=== PATIENT | male | born 1960 | race African-American/Black ===

== ENCOUNTER 2017-05-28 14:17 | Inpatient (IN) | payer OTHER ==
[~2017-05-28] VITALS: Ht 165.1 cm; Wt 72.5 kg
[~2017-05-28 14:17] MED LIST: AMLO1CAP; ATEN50TA; HYDR25TA6; LISI-525; LISI20TA11; NITR0.4T28; OLAN10TA16; PHEN100C; SERT100T; TAMS-14
--- NOTE | 2017-05-28 14:25 | ERA ---
ER Documentation Chief Complaint Date/Time DATE: 05/28/17 TIME: 14:25 Chief Complaint sob cp HPI The patient is a 57-year-old male, presenting with acute chest pain and shortness of breath began about 11 AM. He went to the clinic and was treated with 2 baby aspirin for chest pain and clonidine 0.2 mg p.o. for acute accelerated hypertension transferred to the ER for further evaluation. The chest pain has subsided but he is still complaining of shortness of breath. Has similar symptoms previously, denies fever, chills, neck pain, chest pain, vomiting, dysuria, diarrhea. There are no aggravating or relieving factor for the shortness of breath. he smokes a pack a day, drinks socially Past medical history: Hypertension, BPH, seizure, bipolar, hepatitis C, history of CVA Past medical history: None ROS All systems reviewed and are negative except as per history of present illness. Medications Home Meds Reported Medications Losartan Potassium* (Losartan Potassium*) 50 Mg Tablet, 50 MG PO DAILY, TAB 05/28/17 Aspirin* (Aspirin* Chew) 81 Mg Tab.chew, 81 MG PO DAILY, TAB.CHEW 05/28/17 Phenytoin* Sodium Extended (Dilantin*) 300 Mg Capsule, 300 MG PO HS, CAP 05/28/17 Atenolol* (Atenolol*) 100 Mg Tablet, 100 MG PO DAILY, #30 TAB 05/28/17 Discontinued Reported Medications Nitroglycerin (Nitroquick) 0.4 Mg Tab.subl 01/30/11 Lisinopril* (Lisinopril*) 20 Mg Tablet 01/30/11 Atenolol* (Atenolol*) 50 Mg Tablet 01/30/11 Olanzapine (Zyprexa) 10 Mg Tablet 01/30/11 Sertraline Hcl* (Zoloft*) 100 Mg Tablet 01/30/11 Phenytoin* Sodium Extended (Dilantin*) 100 Mg Capsule 01/30/11 Lisinopril* (Zestril*) 20 Mg Tablet 01/30/11 Amlodipine Besylate/Benazepril (Lotrel 2.5-10 Mg Capsule) 1 Udcap Capsule 01/30/11 Hydrochlorothiazide (Hydrochlorothiazide) 25 Mg Tablet 01/30/11 Tamsulosin Hcl* (Flomax*) 0.4 Mg Cap.sr.24h 01/30/11 Allergies Allergies: Coded Allergies: No Known Allergy (Verified , 01/25/08) PMhx/Soc History of Surgery: No Anesthesia Reaction: No Hx Neurological Disorder: No Hx Respiratory Disorders: No Hx Cardiac Disorders: Yes (HTN) Hx Psychiatric Problems: Yes (BIPOLAR) Hx Miscellaneous Medical Probl: Yes (HEP C) Hx Alcohol Use: Yes Hx Substance Use: No Hx Tobacco Use: No Physical Exam Vitals Vital Signs Date Time Temp Pulse Resp B/P Pulse Ox O2 Delivery O2 Flow Rate FiO2 05/28/17 18:15 58 18 195/151 98 05/28/17 16:55 67 18 182/122 98 05/28/17 15:48 53 18 164/120 98 05/28/17 14:35 Nasal Cannula 2 05/28/17 14:26 97.6 56 18 174/111 98 Physical Exam Const: No acute distress. Head: Atraumatic. Eyes: Normal Conjunctiva. ENT: Normal External Ears, Nose and Mouth. Neck: Full range of motion. No meningismus. Resp: Basilar crackle Cardio: Regular bradycardic Abd: Soft, non distended, normal bowel sounds, non tender. Skin: No petechiae or rashes. Back: No midline or flank tenderness. Ext: bilateral leg edema, no calf tenderness Neur: Awake and alert. No focal deficit Psych: Normal Mood and Affect. Result Diagram: 05/28/17 1450 05/28/17 1450 Results 24 hrs Laboratory Tests Test 05/28/17 14:50 White Blood Count 5.610^3/ul Red Blood Count 5.1410^6/ul Hemoglobin 14.5g/dl Hematocrit 43.3% Mean Corpuscular Volume 84.2fl Mean Corpuscular Hemoglobin 28.2pg Mean Corpuscular Hemoglobin Concent 33.5g/dl Red Cell Distribution Width 13.3% Platelet Count 09529^3/UL Mean Platelet Volume 10.4fl Neutrophils % 45.9% Lymphocytes % 43.6% Monocytes % 6.4% Eosinophils % 3.4% Basophils % 0.5% Nucleated Red Blood Cells % 0.0/100WBC Neutrophils # 2.610^3/ul Lymphocytes # 2.410^3/ul Monocytes # 0.410^3/ul Eosinophils # 0.210^3/ul Basophils # 0.010^3/ul Nucleated Red Blood Cells # 0.010^3/ul Prothrombin Time 12.5Sec Prothrombin Time Ratio 1.0 INR International Normalized Ratio 0.93 Activated Partial Thromboplast Time 28.1Sec Sodium Level 142mmol/L Potassium Level 4.1mmol/L Chloride Level 109mmol/L Carbon Dioxide Level 23mmol/L Anion Gap 14 Blood Urea Nitrogen 13mg/dl Creatinine 1.15mg/dl Glucose Level 104mg/dl Calcium Level 9.3mg/dl Troponin I 0.056ng/ml B-Type Natriuretic Peptide 3230PG/ML Phenytoin (Dilantin) Level < 3.0ug/ml Current Medications Medications (Trade) Dose Ordered Sig/Charli Route PRN Reason Start Time Stop Time Status Last Admin Dose Admin Furosemide (Lasix) 40 mg ONCE ONCE IV 05/28/17 16:30 05/28/17 16:31 DC 05/28/17 16:36 Aspirin (Aspirin) 81 mg DAILY PO 05/29/17 09:00 Losartan Potassium (Cozaar) 100 mg DAILY PO 05/29/17 09:00 UNV Phenytoin (Dilantin) 300 mg HS PO 05/28/17 21:00 UNV Olanzapine (Zyprexa) 7.5 mg DAILY PO 05/29/17 09:00 UNV Hydralazine HCl (Apresoline) 10 mg Q4 PRN IV ELEVATED BLOOD PRESSURE 05/28/17 17:30 UNV Furosemide (Lasix) 40 mg BID DIURETICS IV 05/28/17 22:00 IV Flush (NS 3 ml) 3 ml PER PROTOCOL IV 05/28/17 17:30 Ondansetron HCl (Zofran Inj) 4 mg Q6H PRN IV NAUSEA AND/OR VOMITING 05/28/17 17:30 Acetaminophen (Tylenol Tab) 650 mg Q6H PRN PO PAIN LEVEL 1-3 OR FEVER 05/28/17 17:30 Docusate Sodium (Colace) 100 mg Q12H PRN PO CONSTIPATION 05/28/17 17:30 Famotidine (Pepcid) 20 mg Q12 PO 05/28/17 21:00 Heparin Sodium (Porcine) (Heparin (5000 Units/0.5 ml)) 5,000 unit Q8 SC 05/28/17 22:00 Thiamine HCl (Vitamin B1) 100 mg DAILY PO 05/29/17 09:00 UNV Folic Acid (Folic Acid) 0.4 mg DAILY PO 05/29/17 09:00 UNV Lorazepam (Ativan) 1 mg Q5M PRN IV CONTROL WITHDRAWAL SYMPTOMS 05/28/17 18:00 Albuterol (Proventil 0.083% (Neb)) 2.5 mg Q4H RESP THERAPY PRN HHN SHORTNESS OF BREATH 05/28/17 18:00 Salmeterol Xinafoate/ Fluticasone (Advair 250/50 Diskus) 1 inh BID INH 05/28/17 21:00 UNV Nicotine (Nicoderm 21 Mg/ 24hr) 1 patch DAILY TRANSDERM 05/28/17 18:00 UNV Procedures/[place] [address] Radiology Main Line: [phone] DIAGNOSTIC IMAGING REPORT Patient: AMPARO GODDARD : 1960 Age: 57 Sex: M MR #: [id number] DOS: 05/28/17 1434 Ordering MD: JHONATHAN ZIMMERMAN MD Location: E/R Room/Bed: PROCEDURE: Chest Radiograph. CLINICAL INDICATION: Shortness of breath TECHNIQUE: Single frontal chest radiograph. COMPARISON: Chest radiograph 01/24/2008. CT chest 01/24/2008 FINDINGS: The patient is rotated. Heart is mildly enlarged. There is mild enlargement of the nav likely related to pulmonary vascular congestion. No infiltrate or effusion is seen. The bones are intact. IMPRESSION: 1. Cardiomegaly and mild central vascular congestion. 2. No evidence of acute cardiopulmonary disease. RPTAT: GG .Den Barton MD, MD Date Time Electronically viewed and signed by .Den Barton MD, on 2016 15:02 .B/ CC: JHONATHAN ZIMMERMAN MD EKG: Read by emergency physician Rate/Rhythm: Sinus Bradycardia 54 beats/min QRS, ST, T-waves: No ST elevation, no T inversion, 1st AVB, LAD, RBBB Impression: Abnormal EKG MEDICAL MAKING DECISION: The patient is a 57-year-old male, presenting with acute chest pain, acute CHF. He was treated with Lasix 40 mg IV acute CHF with good response The differential diagnoses for acute chest pain considered include but are not limited to acute coronary syndrome, acute myocardial infarction, pericarditis, pulmonary embolism, aortic dissection, pneumonia, pleural effusion, pneumothorax , GERD, chest wall pain. The differential diagnoses for acute dyspnea considered include but are not limited to asthma, COPD, pneumonia, pulmonary embolus, pleural effusion, congestive heart failure. Departure Diagnosis: Primary Impression: CHF (congestive heart failure) Additional Impression: Chest pain Condition: Stable Comments I discussed the findings with the patient. I advised the patient to follow-up with the primary physician in about 1-2 days, sooner if needed and return if any concern. JHONATHAN ZIMMERMAN MD May 28, 2017 14:25
[2017-05-28] MEDS ORDERED: ATEN100T PO (14:51)
[2017-05-28] MEDS ORDERED: PHEN300C2 PO (14:51)
[2017-05-28] MEDS ORDERED: ASPI81TA3 PO (14:52)
[2017-05-28] MEDS ORDERED: LOSA50TA6 PO (14:53)
[2017-05-28 14:58] LABS: BASOPHILS % 0.5 % (0.0-2.0); EOSINOPHILS # 0.2 10^3/ul (0.0-0.5); EOSINOPHILS % 3.4 % (0.0-7.0); HEMATOCRIT 43.3 % (42.0-52.0); HEMOGLOBIN 14.5 g/dl (14.0-18.0); LYMPHOCYTES # 2.4 10^3/ul (0.8-2.9); LYMPHOCYTES % 43.6 % (15.0-51.0); MEAN CORPUSCULAR HEMOGLOBIN 28.2 pg (29.0-33.0); MEAN CORPUSCULAR HGB CONC 33.5 g/dl (32.0-37.0); MEAN CORPUSCULAR VOLUME 84.2 fl (82.0-101.0); MEAN PLATELET VOLUME 10.4 fl (7.4-10.4); MONOCYTE # 0.4 10^3/ul (0.3-0.9); MONOCYTES % 6.4 % (0.0-11.0); NEUTROPHIL # 2.6 10^3/ul (1.6-7.5); NEUTROPHILS % 45.9 % (39.0-77.0); PLATELET COUNT 288 10^3/UL (140-415); RED BLOOD COUNT 5.14 10^6/ul (4.70-6.10); RED CELL DISTRIBUTION WIDTH 13.3 % (11.5-14.5); WHITE BLOOD COUNT 5.6 10^3/ul (4.8-10.8)
--- NOTE | 2017-05-28 15:02 | RADRPT ---
PROCEDURE: Chest Radiograph. CLINICAL INDICATION: Shortness of breath TECHNIQUE: Single frontal chest radiograph. COMPARISON: Chest radiograph 01/24/2008. CT chest 01/24/2008 FINDINGS: The patient is rotated. Heart is mildly enlarged. There is mild enlargement of the nav likely relat ed to pulmonary vascular congestion. No infiltrate or effusion is seen. The bones are intact. IMPRESSION: 1. Cardiomegaly and mild central vascular congestion. 2. No evidence of acute cardiopulmonary disease. RPTAT: GG .Den Barton MD, MD Date Time Electronically viewed and signed by .Den Barton MD, MD on 05/28/2017 15:02 .B/
[2017-05-28 15:14] LABS: INR 0.93; PROTIME 12.5 Sec (12.2-14.2)
[2017-05-28 15:15] LABS: PARTIAL THROMBOPLASTIN TIME 28.1 Sec (25.0-35.0)
[2017-05-28 15:18] LABS: CALCIUM 9.3 mg/dl (8.4-10.2); CREATININE 1.15 mg/dl (0.61-1.24); POTASSIUM 4.1 mmol/L (3.5-5.1)
[2017-05-28 15:29] LABS: TROPONIN-I 0.056 ng/ml (0.00-0.12)
[2017-05-28] MEDS ORDERED: FUROSEMIDE 40 MG INJ IV ONE (16:30)
[2017-05-28] MEDS ORDERED: ONDANSETRON 4 MG INJ IV PRN (17:30)
[2017-05-28] MEDS ORDERED: ACETAMINOPHEN 325 MG TAB PO PRN (17:30)
[2017-05-28] MEDS ORDERED: DOCUSATE SODIUM 100 MG CAP PO PRN (17:30)
[2017-05-28] MEDS ORDERED: NACL 0.9% 3 ML SYG IV SCH (17:30)
--- NOTE | 2017-05-28 17:58 | HP ---
Date/Time of Note Date/Time of Note DATE: 05/28/17 TIME: 17:35 Assessment/Plan VTE Prophylaxis VTE Prophylaxis Intervention: heparin Lines/Catheters IV C[facility] (from [facility]): Saline Lock Assessment/Plan Assessment/Plan 1. 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 - patient c/o SOB for past 2-3 weeks - CXR shows cardiomegaly with vascular congestion - Given dose of Lasix in ED. Will continue on Lasix 40mg IV BID and monitor I/ O and daily weights - Cardiology consulted and appreciate recommendations - ECHO ordered to evaluate EF and any abnormalities - Holding home BB for now while in decompensated heart failure - BNP 3230 2. Hypertensive urgency - Patient was found to have SBP >190s at his clinic and unable to bring BP down - Restart home patient medications with PRN hydralazine on board. If no improvement will adjust medications 3. Shortness of breath secondary to #1, ? COPD exacerbation - Patient admits to increase in SOB but no increase in sputum production, fevers , or worsening cough - Did not appreciate any wheezing on examination - Will start on Advair, nebs PRN - If needed will start on steroids 4. Tobacco abuse - Counseled about importance of quitting - Nicotine patch ordered 5. Alcohol abuse - Patient has cut down to 1 beer a day - Will give thiamine and folate daily - Ativan PRN 6. Seziures - Dilantin continued 7. h/o CVA in past - stable 8. Cirrhosis - stable 9. Hepatitis C - Plans to quit ETOH and pursue treatment as outpatient 10. Bipolar - Continue on home dose Zyprexa 11. DVT - Heparin 12. GI prophylaxis - Pepcid 13. Code status - Full Code 14. Disposition - Admit to Telemetry >40 minutes was spent with patient at time of admission. HPI/ROS Admit Date/Time Admit Date/Time 05/28/17 Hx of Present Illness 57 yo M with PMH [facility] (records at [facility]), CVA with residual left sided weakness, HTN, seizures, liver cirrhosis, and hepatitis C presented to ED after being sent from his PCP clinic for uncontrolled HTN. was at bedside and history obtained from as well as patient. Per patient, he has been experiencing intermittent shortness of breath for the past 2-3 weeks with associated wheezing. He admits to a chronic cough but denies any sputum production. He has used an albuterol inhaler and neb treatments for relief as well. Patient admits to drinking 1 beer every morning with his medications but did not have a beer today and is experiencing slight shakes. Last seizure was 1 -2 years ago per his recollection. Patient denies being diagnosed with any heart conditions and only recently diagnosed with HTN. Per , patient has significantly cut down on his alcohol intake and working on his health. Patient was recently treated for a UTI at the end of April with Cipro and denies any further episodes of dysuria. ROS Constitutional: No chills, No diaphoresis, No disoriented, No fatigue, No febrile, No nausea Eyes: no complaints ENT: no complaints Respiratory: cough, shortness of breath, wheezing, No sputum Cardiovascular: No chest pain, No edema, No lightheadedness, No palpitations Gastrointestinal: no complaints Genitourinary: no complaints Musculoskeletal: no complaints Skin: no complaints Neurologic: other (residual L sided weakness), seizure Endocrine: no complaints Lymphatic: no complaints Psychological: no complaints Immunologic: no complaints PMH/Family/Social Past Medical History Medical History: coronary artery disease, hypertension, other (Hepatitis C, Liver cirrhosis, CVA, seizures) Past Surgical History Past Surgical Hx: no surgical history Family History Significant Family History: heart disease, other (mother- Lupus) Social History Alcohol Use: other (Drinks 1 can of beer daily) Smoking Status: Current every day smoker (1/2 ppd for many years) Drug Use: none Exam/Review of Systems Vital Signs Vitals Vital Signs Date Time Temp Pulse Resp B/P Pulse Ox O2 Delivery O2 Flow Rate FiO2 05/28/17 16:55 67 18 182/122 98 05/28/17 14:35 Nasal Cannula 2 05/28/17 14:26 97.6 Exam Constitutional: alert, oriented, other (disc), well developed Psych: no complaints Head: atraumatic, normocephalic Eyes: EOMI, PERRL Neck: jvd, non-tender Respiratory: crackles/rales, diminished breath sounds, No labored breathing, No wheezing Cardiovascular: regular rate and rhythm, No systolic murmur Gastrointestinal: nl liver, spleen, non-tender, soft, No distended, No rebound or guarding Musculoskeletal: nl extremities to inspection Extremities: normal pulses Neurological: [employer] II-XII intact, nl mental status, nl speech, nl strength Skin: nl turgor Lymph: nl lymph nodes (poor dentition) Labs Result Diagram: 05/28/17 1450 05/28/17 1450 Medications Medications Current Medications Aspirin (Aspirin) 81 mg DAILY PO ; Start 05/29/17 at 09:00; Status UNV Losartan Potassium (Cozaar) 100 mg DAILY PO ; Start 05/29/17 at 09:00; Status UNV Phenytoin (Dilantin) 300 mg HS PO ; Start 05/28/17 at 21:00; Status UNV Olanzapine (Zyprexa) 7.5 mg DAILY PO ; Start 05/29/17 at 09:00; Status UNV Hydralazine HCl (Apresoline) 10 mg Q4 PRN IV ELEVATED BLOOD PRESSURE; Start at 17:30; Status UNV Furosemide (Lasix) 40 mg BID IV ; Start 05/28/17 at 22:00; Status UNV Ondansetron HCl (Zofran Inj) 4 mg Q6H PRN IV NAUSEA AND/OR VOMITING; Start at 17:30; Status UNV Acetaminophen (Tylenol Tab) 650 mg Q6H PRN PO PAIN LEVEL 1-3 OR FEVER; Start at 17:30; Status UNV Docusate Sodium (Colace) 100 mg Q12H PRN PO CONSTIPATION; Start 05/28/17 at 17: 30; Status UNV Famotidine (Pepcid) 20 mg Q12 PO ; Start 05/28/17 at 21:00; Status UNV Heparin Sodium (Porcine) (Heparin (5000 Units/0.5 ml)) 5,000 unit Q8 SC ; Start 05/28/17 at 22:00; Status UNV ADDISON ZIMMER MD May 28, 2017 17:57
[2017-05-28] MEDS: NICOTINE (21 MG/24 HR) PATCH TRANSDERM SCH (18:00)
[2017-05-28] MEDS ORDERED: ALBUTEROL 0.083% (NEB) 2.5 MG/3 ML AMP HHN PRN (18:00)
[2017-05-28] MEDS ORDERED: LORAZEPAM 2 MG INJ IV PRN (18:00)
[2017-05-28 20:02] VITALS: TEMP 98.1
[2017-05-28] MEDS: PHENYTOIN 100 MG CAP PO SCH (21:00)
[2017-05-28] MEDS: SALMETEROL/FLUTICASONE 250/50 INHA INH SCH (21:00)
[2017-05-28] MEDS: hydrALAzine 20 MG INJ IV PRN (21:22)
[2017-05-28 22:40] VITALS: BP 199/116; PULSE 60; RESP 22
[2017-05-28 23:00] VITALS: BP_SYST 183; BP_SYST 188; BP_DIAS 110; BP_DIAS 113; PULSE 59; RESP 20; Ht 165.1 cm; Wt 72.5 kg
[2017-05-28 23:21] VITALS: PULSE 56
[2017-05-28 23:25] LABS: TROPONIN-I 0.063 ng/ml (0.00-0.12)
[2017-05-28 23:29] LABS: CK-MB 2.09 ng/ml (0.0-2.4)
[2017-05-28 23:30] VITALS: BP 172/108; PULSE 64
[2017-05-28] MEDS: FUROSEMIDE 40 MG INJ IV SCH (23:41)
[2017-05-28] MEDS: FAMOTIDINE 20 MG TAB PO SCH (23:41)
[2017-05-28] MEDS: HEPARIN 5,000 UNIT/0.5 ML VIAL SC SCH (23:56)
[2017-05-29] VITALS (14 sets, daily range): BP systolic 120–180; BP diastolic 78–110; PULSE 54–68; RESP 18–20
[2017-05-29] MEDS: hydrALAzine 20 MG INJ IV PRN ×2 (00:48→06:05)
[2017-05-29 02:18] LABS: TROPONIN-I 0.067 ng/ml (0.00-0.12)
[2017-05-29 02:24] LABS: CK-MB 2.33 ng/ml (0.0-2.4)
[2017-05-29] MEDS: FUROSEMIDE 40 MG INJ IV SCH ×2 (06:05→17:35)
[2017-05-29] MEDS: HEPARIN 5,000 UNIT/0.5 ML VIAL SC SCH ×3 (06:12→21:01)
[2017-05-29 07:50] LABS: BASOPHILS % 0.5 % (0.0-2.0); EOSINOPHILS # 0.1 10^3/ul (0.0-0.5); EOSINOPHILS % 2.5 % (0.0-7.0); HEMATOCRIT 47.7 % (42.0-52.0); HEMOGLOBIN 15.9 g/dl (14.0-18.0); LYMPHOCYTES # 2.3 10^3/ul (0.8-2.9); MEAN CORPUSCULAR HEMOGLOBIN 27.6 pg (29.0-33.0); MEAN CORPUSCULAR HGB CONC 33.3 g/dl (32.0-37.0); MEAN CORPUSCULAR VOLUME 82.8 fl (82.0-101.0); MEAN PLATELET VOLUME 10.5 fl (7.4-10.4); MONOCYTE # 0.5 10^3/ul (0.3-0.9); MONOCYTES % 9.5 % (0.0-11.0); NEUTROPHIL # 2.5 10^3/ul (1.6-7.5); NEUTROPHILS % 45.3 % (39.0-77.0); PLATELET COUNT 302 10^3/UL (140-415); RED BLOOD COUNT 5.76 10^6/ul (4.70-6.10); RED CELL DISTRIBUTION WIDTH 13.6 % (11.5-14.5); WHITE BLOOD COUNT 5.5 10^3/ul (4.8-10.8)
[2017-05-29 08:15] LABS: ALBUMIN 4.2 g/dl (3.3-4.9); ALBUMIN/GLOBULIN RATIO 0.85; BILIRUBIN,INDIRECT 0.5 mg/dl (0-1.1); BILIRUBIN,TOTAL 0.5 mg/dl (0.2-1.3); CALCIUM 9.8 mg/dl (8.4-10.2); CHOL/HDL RATIO 7.2 RATIO; CREATININE 1.32 mg/dl (0.61-1.24); MAGNESIUM 1.7 mg/dl (1.7-2.5); POTASSIUM 3.6 mmol/L (3.5-5.1); TOTAL PROTEIN 9.1 g/dl (6.1-8.1)
[2017-05-29] MEDS: OLANZAPINE 5 MG TAB PO SCH (08:18)
[2017-05-29] MEDS: NICOTINE (21 MG/24 HR) PATCH TRANSDERM SCH (08:18)
[2017-05-29] MEDS: LOSARTAN 50 MG TAB PO SCH (08:19)
[2017-05-29] MEDS: FOLIC ACID 0.4 MG TAB PO SCH (08:19)
[2017-05-29] MEDS: THIAMINE 100 MG TAB PO SCH (08:19)
[2017-05-29] MEDS: ASPIRIN 81 MG TAB PO SCH (08:19)
[2017-05-29] MEDS: FAMOTIDINE 20 MG TAB PO SCH ×2 (08:19→20:53)
[2017-05-29] MEDS: SALMETEROL/FLUTICASONE 250/50 INHA INH SCH ×3 (09:00→20:53)
[2017-05-29] MEDS ORDERED: POTASSIUM CHLORIDE (SR) 20 MEQ TAB PO STA ×2 (10:54→10:55)
--- NOTE | 2017-05-29 10:59 | PN ---
Date/Time of Note Date/Time of Note DATE: 05/29/17 TIME: 10:58 Assessment/Plan VTE Prophylaxis VTE Prophylaxis Intervention: heparin Lines/Catheters IV [facility] Saline Lock Urinary Cath still in place: No Assessment/Plan Assessment/Plan 1. 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 - Patient has been diuresing well and output -1450 - CXR shows cardiomegaly with vascular congestion - Continue on Lasix 40mg IV BID and monitor I/O and daily weights - Cardiology consulted and appreciate recommendations - ECHO ordered to evaluate EF and any abnormalities 2. Hypertensive urgency - Improving, will continue adjusting medications 3. Shortness of breath secondary to #1, ? COPD exacerbation - Improving. bronchodilators on board and nebs PRN - no wheezing appreciated 4. Hypokalemia - replaced 5. HypoMg - replaced 6. Tobacco abuse - Counseled about importance of quitting - Nicotine patch 7. Alcohol abuse - Patient has cut down to 1 beer a day - Will give thiamine and folate daily - Ativan PRN 8. Seizures - on Dilantin 9. h/o CVA in past - stable 10. Cirrhosis - stable 11. Hepatitis C - Plans to quit ETOH and pursue treatment as outpatient 12. Bipolar - Continue on home dose Zyprexa Subjective 24 Hr Interval Summary Free Text/Dictation Patient states he's feeling better and denies any worsening shortness of breath. No acute overnight events and no withdrawal symptoms. Exam/Review of Systems Vital Signs Vitals Vital Signs Date Time Temp Pulse Resp B/P Pulse Ox O2 Delivery O2 Flow Rate FiO2 05/29/17 08:17 59 05/29/17 08:02 98.6 18 120/78 96 05/29/17 08:00 Nasal Cannula 2.0 Intake and Output 05/28/17 05/28/17 05/29/17 15:00 23:00 07:00 Intake Total 220 ml Output Total 600 ml 850 ml Balance -600 ml -630 ml Exam General: NAD, alert, well developed HEENT: atraumatic, normocephalic, EOMI, PERRL Neck: +jvd, non-tender Respiratory: crackles/rales, diminished breath sounds, No labored breathing, No wheezing Cardiovascular: regular rate and rhythm, No systolic murmur Gastrointestinal: nl liver, spleen, non-tender, soft, No distended, No rebound or guarding Extremities: normal pulses, no cyanosis, clubbing, or edema. no tremors Results Result Diagram: 05/29/17 0712 05/29/17 0712 Results 24 hrs Laboratory Tests Test 05/28/17 14:50 05/28/17 22:00 05/29/17 01:10 05/29/17 07:12 White Blood Count 5.6 5.5 Red Blood Count 5.14 5.76 Hemoglobin 14.5 15.9 Hematocrit 43.3 47.7 Mean Corpuscular Volume 84.2 82.8 Mean Corpuscular Hemoglobin 28.2 L 27.6 L Mean Corpuscular Hemoglobin Concent 33.5 33.3 Red Cell Distribution Width 13.3 13.6 Platelet Count 288 302 Mean Platelet Volume 10.4 10.5 H Neutrophils % 45.9 45.3 Lymphocytes % 43.6 42.0 Monocytes % 6.4 9.5 Eosinophils % 3.4 2.5 Basophils % 0.5 0.5 Nucleated Red Blood Cells % 0.0 0.0 Neutrophils # 2.6 2.5 Lymphocytes # 2.4 2.3 Monocytes # 0.4 0.5 Eosinophils # 0.2 0.1 Basophils # 0.0 0.0 Nucleated Red Blood Cells # 0.0 0.0 Prothrombin Time 12.5 Prothrombin Time Ratio 1.0 INR International Normalized Ratio 0.93 Activated Partial Thromboplast Time 28.1 Sodium Level 142 142 Potassium Level 4.1 3.6 Chloride Level 109 106 Carbon Dioxide Level 23 22 Anion Gap 14 18 H Blood Urea Nitrogen 13 21 H Creatinine 1.15 1.32 H Glucose Level 104 100 Calcium Level 9.3 9.8 Troponin I 0.056 0.063 0.067 B-Type Natriuretic Peptide 3230 H Phenytoin (Dilantin) Level < 3.0 L Creatine Kinase 122 129 Creatine Kinase Index 1.7 1.8 Creatinine Kinase MB (Mass) 2.09 2.33 Hemoglobin A1c 6.0 H Magnesium Level 1.7 Total Bilirubin 0.5 Direct Bilirubin 0.00 Indirect Bilirubin 0.5 Aspartate Amino Transf (AST/SGOT) 73 H Alanine Aminotransferase (ALT/SGPT) 60 Alkaline Phosphatase 126 H Total Protein 9.1 H Albumin 4.2 Globulin 4.90 H Albumin/Globulin Ratio 0.85 Triglycerides Level 195 H Cholesterol Level 226 H LDL Cholesterol, Calculated 156 HDL Cholesterol 31 Cholesterol/HDL Ratio 7.2 Medications Medications Current Medications Aspirin (Aspirin) 81 mg DAILY PO Last administered on 05/29/17 08:19; Admin Dose 81 MG; Start 05/29/17 at 09:00 Losartan Potassium (Cozaar) 100 mg DAILY PO Last administered on 05/29/17 08: 19; Admin Dose 100 MG; Start 05/29/17 at 09:00 Phenytoin (Dilantin) 300 mg HS PO ; Start 05/28/17 at 21:00 Olanzapine (Zyprexa) 7.5 mg DAILY PO Last administered on 05/29/17 08:18; Admin Dose 7.5 MG; Start 05/29/17 at 09:00 Hydralazine HCl (Apresoline) 10 mg Q4H PRN IV ELEVATED SYSTOLIC BP Last administered on 05/29/17 06:05; Admin Dose 10 MG; Start 05/28/17 at 17:30 Ondansetron HCl (Zofran Inj) 4 mg Q6H PRN IV NAUSEA AND/OR VOMITING; Start at 17:30 Acetaminophen (Tylenol Tab) 650 mg Q6H PRN PO PAIN LEVEL 1-3 OR FEVER; Start at 17:30 Docusate Sodium (Colace) 100 mg Q12H PRN PO CONSTIPATION; Start 05/28/17 at 17: 30 Famotidine (Pepcid) 20 mg Q12 PO Last administered on 05/29/17 08:19; Admin Dose 20 MG; Start 05/28/17 at 21:00 Heparin Sodium (Porcine) (Heparin (5000 Units/0.5 ml)) 5,000 unit Q8 SC Last administered on 05/29/17 06:12; Admin Dose 5,000 UNIT; Start 05/28/17 at 22:00 Thiamine HCl (Vitamin B1) 100 mg DAILY PO Last administered on 05/29/17 08:19 ; Admin Dose 100 MG; Start 05/29/17 at 09:00 Folic Acid (Folic Acid) 0.4 mg DAILY PO Last administered on 05/29/17 08:19; Admin Dose 0.4 MG; Start 05/29/17 at 09:00 Lorazepam (Ativan) 1 mg Q5M PRN IV CONTROL WITHDRAWAL SYMPTOMS Last administered on 05/28/17 22:03; Admin Dose 1 MG; Start 05/28/17 at 18:00 Salmeterol Xinafoate/ Fluticasone (Advair 250/50 Diskus) 1 inh BID INH ; Start 05/28/17 at 21:00 Nicotine 1 patch 1 patch DAILY TRANSDERM Last administered on 05/29/17 08:18; Admin Dose 1 PATCH; Start 05/28/17 at 18:00 Magnesium Sulfate (Magnesium Sulfate 2 Gm/50 ml) 50 ml @ 25 mls/hr ONCE ONCE IVPB ; Start 05/29/17 at 11:00; Stop 05/29/17 at 12:59; Status ADDISON HINTON MD May 29, 2017 10:59
[2017-05-29] MEDS ORDERED: MAGNESIUM SULFATE 2 GM/50 ML 50 ML IVPB ONE (11:00)
[2017-05-29] MEDS: PHENYTOIN 100 MG CAP PO SCH (20:53)
--- NOTE | 2017-05-29 21:06 | RADRPT ---
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 Physician: ADDISON ZIMMER Quality: Good Procedures: Transthoracic echocardiogram with complete 2D, M-Mode, and doppler examination. Indications: new onset of CHF. 2D/M Mode Doppler Measurement Value Normal Ranges Measurement Value Normal Ranges LVIDd 2D 3.5 3.5 - 5.6 cm AV Peak [place] 1.4 m/sec LVIDs 2D 2.3 2.1 - 4.1 cm AV Peak PG 7.9 mmHg LVPWd 2D 1.9 0.6 - 1.1 cm LVOT Peak [place] 1.4 m/sec IVSd 2D 2.5 0.6 - 1.1 cm LVOT Peak PG 7.7 mmHg AoR Diam 2D 3.1 2.0 - 3.7 cm MV E Peak [place] 0.6 m/sec EDV 2D 52.4 cm3 MV A Peak [place] 0.7 m/sec ESV 2D 12.6 cm3 MV E/A 0.8 LA Dimen 2D 4.4 2.3 - 4.0 cm MV Decel Time 269 msec MV Decel [place] 2 MV E/A 0.8 TR Peak [place] 1.5 m/sec TR Peak PG 9.5 mmHg RVSP 13.0 mmHg Findings Left Ventricle: Lower limits of normal systolic function. Severe concentric left ventricular hypertrophy. Reduced left ventricular cavity size. Ejection fraction is visually estimated at 50 %. Tissue Doppler/Mitral Doppler indices are consistent with impaired relaxation (Stage I diastolic dysfunction). These segments of the LV are hypokinetic anteroseptum mid segment. Right Ventricle: Mild enlargement of right ventricle. Left Atrium: The left atrium is normal in size. Right Atrium: The right atrium is normal in size. Mitral Valve: Mitral valve leaflets appear mildly thickened. Mild mitral annular calcification. Trace mitral regurgitation. Aortic Valve: Normal appearance of the aortic valve. No significant aortic stenosis or insufficiency. Tricuspid Valve: Normal appearance of the tricuspid valve. Estimated peak PA systolic pressure 13 mmHg. There is trace tricuspid regurgitation. Pulmonic Valve: Normal pulmonic valve appearance. There is trace pulmonic regurgitation. Pericardium: Normal pericardium with no significant pericardial effusion. Aorta: Normal aortic root. IVC: Normal size and normal respiratory collapse consistent with normal right atrial pressure. Conclusions 1.Lower limits of normal systolic function. Severe concentric left ventricular hypertrophy. Reduced left ventricular cavity size. Ejection fraction is visually estimated at 50 %. Tissue Doppler/Mitral Doppler indices are consistent with impaired relaxation (Stage I diastolic dysfunction). These segments of the LV are hypokinetic anteroseptum mid segment. 2.Mild enlargement of right ventricle. 3.Mitral valve leaflets appear mildly thickened. Mild mitral annular calcification. Trace mitral regurgitation. 4.Normal appearance of the tricuspid valve. Estimated peak PA systolic pressure 13 mmHg. There is trace tricuspid regurgitation. 5.Normal pulmonic valve appearance. There is trace pulmonic regurgitation. Electronically Signed By: Jm Martins 29-May-2017 21:06:30 -0700 Patient Name: AMPARO GODDARD Study Date: 29-May-2017 [id number]
[2017-05-30] VITALS (14 sets, daily range): BP systolic 115–154; BP diastolic 69–103; PULSE 57–161; RESP 15–20
[2017-05-30] MEDS: FUROSEMIDE 40 MG INJ IV SCH (05:49)
[2017-05-30] MEDS: HEPARIN 5,000 UNIT/0.5 ML VIAL SC SCH ×3 (05:51→21:20)
--- NOTE | 2017-05-30 05:58 | CONS ---
DATE OF ADMISSION: 05/28/2017 DATE OF CONSULTATION: 05/29/2017 REASON FOR CONSULTATION: Shortness of breath, congestive heart failure. REQUESTING PHYSICIAN: Dr. Garcia from the hospital service. HISTORY OF PRESENT ILLNESS: Mr. Alberts is a 57-year-old male with a history of congestive heart failure, unknown EF, hypertension, ETOH, positive tobacco, although patient denied to me, seizures, prior CVA, cirrhosis and hepatitis C, psych disorder, who initially presented with hypertensive urgency emergency and associated shortness of breath. Upon arrival, temperature 97.6, blood pressure 174/111, pulse 56, respiratory rate 18, satting 98%. Patient's labs, white count 5.6, hemoglobin 14.5, platelet count 288,000. Sodium 142, potassium 4.1, creatinine 1.1, BUN 13. Troponin negative. BNP of 3230. INR 0.93. Dilantin level than 3. Patient had a chest x-ray, cardiomegaly and mild central vascular congestion. Patient's electrocardiogram, sinus bradycardia, first-degree AV block, right bundle branch block, secondary repolarization abnormalities, left atrial abnormality, lateral T-wave inversions. Patient subsequently admitted to the floor and since admitted to floor has had three negative troponins drawn 4 hours apart. Patient has been placed on Lasix diuresis with mild bump in his creatinine. Patient's denies chest pain at this time and patient has been placed on losartan. Patient continued to have significantly elevated systolic blood pressures. PAST MEDICAL HISTORY: As above in HPI. MEDICATIONS CURRENTLY IN HOSPITAL: 1. Aspirin 81 mg daily. 2. Losartan 100 mg daily. 3. Vitamin B1 100 mg daily. 4. Folic acid 0.4 mg daily. 5. Lasix 20 mg IV b.i.d. 6. Heparin 500 subcu t.i.d. 7. Dilantin 300 mg at bedtime. 8. Pepcid 20 mg every 12. 9. Advair Diskus. 10. Ativan p.r.n. 11. Albuterol p.r.n. 12. Nicotine patch. 13. Hydralazine p.r.n. 14. Zofran p.r.n. 15. Tylenol p.r.n. 16. Colace, p.r.n. ALLERGIES: NO KNOWN DRUG ALLERGIES. SOCIAL HISTORY: Positive tobacco. Positive ETOH. No illicit drug use. FAMILY HISTORY: No history of sudden cardiac or early CAD. REVIEW OF SYSTEMS: As above in HPI. CONSTITUTIONAL: No fevers, chills. RESPIRATORY: Shortness of breath. HEART: Congestive heart failure. GASTROINTESTINAL: No vomiting. GENITOURINARY: Renal failure. PSYCH: Positive psych history. NEUROLOGIC: History of CVA. ENDOCRINE: No documentation thyroid disease or diabetes mellitus. PHYSICAL EXAMINATION: VITAL SIGNS: Temperature 98.4, blood pressure 150/93, pulse 60, respiratory rate 20, satting 92%. GENERAL: The patient is alert, awake, complaining of shortness of breath. NECK: JVP approximately 9 cm of water. CHEST: Fair air movement throughout with mildly decreased breath sounds at the bases bilaterally. HEART: Regular rate and rhythm. Normal S1, S2; 1/6 systolic murmur. ABDOMEN: Positive bowel sounds, soft. EXTREMITIES: Trace edema, 1+ pulses. Bilateral posterior tibial pulses. As in HPI, most recent studies from today, sodium 142, potassium 3.6, creatinine 1.32. Hemoglobin A1c of 6. LDL 156, HDL 31. White count 5.5, hemoglobin 15.9, platelet count 302,000. INR 0.9. IMAGING STUDIES: As above in HPI. No further imaging studies for my review at this time. ECG, as above in HPI. No further electrocardiograms for my review at this time. IMPRESSION: 1. Congestive heart failure exacerbation, question systolic versus diastolic, likely acute on chronic. 2. Abnormal electrocardiogram. Assess for acute coronary syndrome with anterolateral T-wave inversions. 3. Hypertensive urgency emergency. 4. Dyslipidemia. 5. Cirrhosis by chart biopsy. 6. Renal insufficiency, acute onset. 7. Seizure disorder. 8. Psych disorder. 9. Possible ETOH abuse. RECOMMENDATIONS: 1. At this time, would maintain patient on telemetry monitoring to follow the rhythm and rates closely. 2. discharge the patient. EKG abnormalities and the cause of these symptoms are not due to acute coronary syndrome versus acute myocardial infarction. Will continue patient on current aspirin at this for prophylaxis for cardiac events. 3. Will continue the patient's Lasix at this time and follow creatinine closely, and if it continues to bump will hold Lasix. 4. Continue the patient's current Cozaar and will initiate the patient on hydralazine to improve overall systolic blood pressure control. 5. Follow patient's 2D echo to assess ejection fraction, wall motion, rule out any major valve abnormalities. 6. Will check a TSH, to see if subclinical hypothyroidism is not contributing to bouts of bradycardia. 7. Smoking cessation. 8. Likely cardiac stress test when patient's hemodynamics improve. Thank you for allowing me to participate in the care of this patient. I will continue to follow him closely with you. Further recommendations will be made based on and patient's hospital clinical course. Dictated By: Jm aMrtins MD /richard/tania /Document#: [id number] ; Dr. Daley from hospitalist service
[2017-05-30 07:22] LABS: BASOPHILS % 0.4 % (0.0-2.0); EOSINOPHILS # 0.1 10^3/ul (0.0-0.5); HEMATOCRIT 50.5 % (42.0-52.0); HEMOGLOBIN 16.4 g/dl (14.0-18.0); LYMPHOCYTES # 3.5 10^3/ul (0.8-2.9); LYMPHOCYTES % 48.3 % (15.0-51.0); MEAN CORPUSCULAR HEMOGLOBIN 27.6 pg (29.0-33.0); MEAN CORPUSCULAR HGB CONC 32.5 g/dl (32.0-37.0); MEAN PLATELET VOLUME 10.4 fl (7.4-10.4); MONOCYTE # 0.6 10^3/ul (0.3-0.9); MONOCYTES % 8.8 % (0.0-11.0); NEUTROPHIL # 2.9 10^3/ul (1.6-7.5); NEUTROPHILS % 40.4 % (39.0-77.0); PLATELET COUNT 288 10^3/UL (140-415); RED BLOOD COUNT 5.94 10^6/ul (4.70-6.10); RED CELL DISTRIBUTION WIDTH 13.6 % (11.5-14.5); WHITE BLOOD COUNT 7.2 10^3/ul (4.8-10.8)
[2017-05-30 07:58] LABS: CHOL/HDL RATIO 6.6 RATIO
[2017-05-30 08:09] LABS: TROPONIN-I 0.101 ng/ml (0.00-0.12)
[2017-05-30] MEDS: NICOTINE (21 MG/24 HR) PATCH TRANSDERM SCH (08:15)
[2017-05-30] MEDS: SALMETEROL/FLUTICASONE 250/50 INHA INH SCH ×2 (08:16→20:58)
[2017-05-30] MEDS: ASPIRIN 81 MG TAB PO SCH (08:17)
[2017-05-30] MEDS: FAMOTIDINE 20 MG TAB PO SCH ×2 (08:17→20:58)
[2017-05-30] MEDS: LOSARTAN 50 MG TAB PO SCH (08:18)
[2017-05-30] MEDS: FOLIC ACID 0.4 MG TAB PO SCH (08:18)
[2017-05-30] MEDS: OLANZAPINE 5 MG TAB PO SCH (08:19)
[2017-05-30] MEDS: THIAMINE 100 MG TAB PO SCH (08:21)
[2017-05-30 09:41] LABS: ALBUMIN 4.3 g/dl (3.3-4.9); CALCIUM 9.8 mg/dl (8.4-10.2); CREATININE 1.52 mg/dl (0.61-1.24); MAGNESIUM 1.8 mg/dl (1.7-2.5); PHOSPHORUS 4.5 mg/dl (2.5-4.9); POTASSIUM 3.9 mmol/L (3.5-5.1)
--- NOTE | 2017-05-30 15:09 | PN ---
Date/Time of Note Date/Time of Note DATE: 05/30/17 TIME: 14:54 Assessment/Plan VTE Prophylaxis VTE Prophylaxis Intervention: heparin Lines/Catheters IV Catheter Type (from Nrs): [place] [facility] Urinary Cath still in place: No Assessment/Plan Assessment/Plan 1. Congestive heart failure exacerbation, diastolic, improved, decrease lasix due to higher Cr 2. Hypertensive urgency emergency, add norvasc for better BP control 3. Acute Renal insufficiency, decrease lasix 4. Dyslipidemia. 5. Cirrhosis by chart biopsy. 6. Seizure disorder, on dilantin 7. Bipolar disorder. stable 8. Possible ETOH abuse. 9. DVT prophylaxis: Heparin Subjective 24 Hr Interval Summary Free Text/Dictation less shortness of breath, no chest pain Exam/Review of Systems Vital Signs Vitals Vital Signs Date Time Temp Pulse Resp B/P Pulse Ox O2 Delivery O2 Flow Rate FiO2 05/30/17 12:02 62 05/30/17 11:24 98.5 20 152/84 94 05/29/17 21:29 Nasal Cannula 2.0 Intake and Output 05/29/17 05/29/17 05/30/17 15:00 23:00 07:00 Intake Total 50 ml 650 ml 200 ml Output Total 800 ml 500 ml Balance 50 ml -150 ml -300 ml Exam Constitutional: alert, oriented, well developed Psych: nl mood/affect, no complaints Head: atraumatic, normocephalic Eyes: EOMI, PERRL, nl conjunctiva, nl lids, nl sclera ENMT: nl external ears & nose, nl lips & teeth, nl nasal mucosa & septum Neck: non-tender, supple Respiratory: clear to auscultation, normal air movement, No congested cough, No crackles/rales, No diminished breath sounds, No intercostal retraction, No labored breathing, No other, No respirations, No tactile fremitus, No wheezing Cardiovascular: nl pulses, regular rate and rhythm, No S3, No S4, No bruits, No diastolic murmur, No edema, No gallop, No irregular rhythm, No jugular venous distention (JVD), No murmurs/extra sounds, No other, No rub, No systolic murmur Gastrointestinal: nl liver, spleen, non-tender, soft, No ascites, No bowel sounds, No distended, No firm, No hepatomegaly, No mass , No other, No rebound or guarding, No splenomegaly, No surgical scars, No tender Musculoskeletal: nl extremities to inspection Extremities: normal pulses, No calf tenderness, No clubbing, No cyanosis, No edema, No other, No palpable cord, No pitting pedal edema, No tenderness Neurological: IT TRAINEE II-XII intact, nl mental status, nl speech, nl strength Skin: nl turgor Results Result Diagram: 05/30/17 0648 05/30/17 0648 Results 24 hrs Laboratory Tests Test 05/30/17 06:48 White Blood Count 7.2 # Red Blood Count 5.94 Hemoglobin 16.4 Hematocrit 50.5 Mean Corpuscular Volume 85.0 Mean Corpuscular Hemoglobin 27.6 L Mean Corpuscular Hemoglobin Concent 32.5 Red Cell Distribution Width 13.6 Platelet Count 288 Mean Platelet Volume 10.4 Neutrophils % 40.4 Lymphocytes % 48.3 Monocytes % 8.8 Eosinophils % 2.0 Basophils % 0.4 Nucleated Red Blood Cells % 0.0 Neutrophils # 2.9 Lymphocytes # 3.5 H Monocytes # 0.6 Eosinophils # 0.1 Basophils # 0.0 Nucleated Red Blood Cells # 0.0 Sodium Level 140 Potassium Level 3.9 Chloride Level 106 Carbon Dioxide Level 20 L Anion Gap 18 H Blood Urea Nitrogen 29 H Creatinine 1.52 H Glucose Level 105 Calcium Level 9.8 Phosphorus Level 4.5 Magnesium Level 1.8 Troponin I 0.101 B-Type Natriuretic Peptide 1150 H Albumin 4.3 Triglycerides Level 216 H Cholesterol Level 219 H LDL Cholesterol, Calculated 143 HDL Cholesterol 33 Cholesterol/HDL Ratio 6.6 Medications Medications Current Medications Aspirin (Aspirin) 81 mg DAILY PO Last administered on 05/30/17 08:17; Admin Dose 81 MG; Start 05/29/17 at 09:00 Losartan Potassium (Cozaar) 100 mg DAILY PO Last administered on 05/30/17 08: 18; Admin Dose 100 MG; Start 05/29/17 at 09:00 Phenytoin (Dilantin) 300 mg HS PO Last administered on 05/29/17 20:53; Admin Dose 300 MG; Start 05/28/17 at 21:00 Olanzapine (Zyprexa) 7.5 mg DAILY PO Last administered on 05/30/17 08:19; Admin Dose 7.5 MG; Start 05/29/17 at 09:00 Hydralazine HCl (Apresoline) 10 mg Q4H PRN IV ELEVATED SYSTOLIC BP Last administered on 05/29/17 06:05; Admin Dose 10 MG; Start 05/28/17 at 17:30 Ondansetron HCl (Zofran Inj) 4 mg Q6H PRN IV NAUSEA AND/OR VOMITING; Start at 17:30 Acetaminophen (Tylenol Tab) 650 mg Q6H PRN PO PAIN LEVEL 1-3 OR FEVER; Start at 17:30 Docusate Sodium (Colace) 100 mg Q12H PRN PO CONSTIPATION; Start 05/28/17 at 17: 30 Famotidine (Pepcid) 20 mg Q12 PO Last administered on 05/30/17 08:17; Admin Dose 20 MG; Start 05/28/17 at 21:00 Heparin Sodium (Porcine) (Heparin (5000 Units/0.5 ml)) 5,000 unit Q8 SC Last administered on 05/30/17 13:36; Admin Dose 5,000 UNIT; Start 05/28/17 at 22:00 Thiamine HCl (Vitamin B1) 100 mg DAILY PO Last administered on 05/30/17 08:21 ; Admin Dose 100 MG; Start 05/29/17 at 09:00 Folic Acid (Folic Acid) 0.4 mg DAILY PO Last administered on 05/30/17 08:18; Admin Dose 0.4 MG; Start 05/29/17 at 09:00 Lorazepam (Ativan) 1 mg Q5M PRN IV CONTROL WITHDRAWAL SYMPTOMS Last administered on 05/28/17 22:03; Admin Dose 1 MG; Start 05/28/17 at 18:00 Salmeterol Xinafoate/ Fluticasone (Advair 250/50 Diskus) 1 inh BID INH Last administered on 05/30/17 08:16; Admin Dose 1 INH; Start 05/28/17 at 21:00 Nicotine (Nicoderm 21 Mg/ 24hr) 1 patch DAILY TRANSDERM Last administered on 08:15; Admin Dose 1 PATCH; Start 05/28/17 at 18:00 Hydralazine HCl (Apresoline) 25 mg Q8 PO Last administered on 05/30/17 13:34; Admin Dose 25 MG; Start 05/29/17 at 22:00 GULSHAN TAMEZ MD May 30, 2017 15:09
[2017-05-30] MEDS: AMLODIPINE 2.5 MG TAB PO SCH (15:44)
--- NOTE | 2017-05-30 16:36 | RADRPT ---
Vent Rate: 58 bpm RR Interval: 0 msec W[place] Interval: 218 msec QRS Duration: 144 msec QT Interval: 514 msec QTC Interval: 504 msec P-R-T [place]: 18 - 4 - 48 degrees Sinus bradycardia with 1st degree AV block Possible Left atrial enlargement Right bundle branch block T wave abnormality, consider lateral ischemia Abnormal ECG Electronically Signed By: Moshe Hernandez [id number]
--- NOTE | 2017-05-30 16:52 | CONS ---
Date/Time of Note Date/Time of Note DATE: 05/30/17 TIME: 16:40 Assessment/Plan Assessment/Plan Chief Complaint/Hosp Course IMPRESSION: 1. Congestive heart failure exacerbation, question systolic vs diastolic, likely acute on chronic. 2. Abnormal electrocardiogram. Assess for acute coronary syndrome with anterolateral T-wave inversions. 3. Hypertensive urgency emergency. 4. Dyslipidemia. 5. Cirrhosis by chart biopsy. 6. Renal insufficiency, acute onset. 7. Seizure disorder. 8. Psych disorder. 9. Possible ETOH abuse. 10. WCT-concerning for NSVT recurrent today-negative trop x 3 Recc: -Tele -Continue norvasc/hydralazine/losartan -Will review echo -keep k>4.0 and Mg>2.0 as possible given NSVT -would resume low dose BB as tolerated given NSVT -Continue lasix and follow volume status/creatnine closely Problems: Consultation Date/Type/Reason Admit Date/Time May 28, 2017 at 16:30 Initial Consult Date 05/29/17 Type of Consultation: Cardiology Reason for Consultation CHF Referring Provider: RIVER LU Exam/Review of Systems Vital Signs Vitals Vital Signs Date Time Temp Pulse Resp B/P Pulse Ox O2 Delivery O2 Flow Rate FiO2 05/30/17 15:51 97.5 71 19 147/75 95 05/29/17 21:29 Nasal Cannula 2.0 Intake and Output 05/29/17 05/29/17 05/30/17 15:00 23:00 07:00 Intake Total 50 ml 650 ml 200 ml Output Total 800 ml 500 ml Balance 50 ml -150 ml -300 ml Exam Review of Systems: CONSTITUTIONAL: No fevers, chills. PULMONARY: No sob CARDIOVASCULAR: No chest pain/palpitations GASTROINTESTINAL: No nausea/vomiting. GENITOURINARY: No hematuria/dysuria. MUSCULOSKELETAL: No myagias/arthalgias. PSYCHIATRIC: The patient denies depression. NEUROLOGIC: No weakness Constitutional: alert Psych: no complaints Head: normocephalic ENMT: mucosa pink and moist Neck: jvd (9 cm water), supple Respiratory: diminished breath sounds (at bases/B) Cardiovascular: regular rate and rhythm Gastrointestinal: non-tender, soft Musculoskeletal: muscle tone (nor) Extremities: other (none) Neurological: other (No focal deficits) Results Result Diagram: 05/30/17 0648 05/30/17 0648 Results 24 hrs Laboratory Tests Test 05/30/17 06:48 White Blood Count 7.2 # Red Blood Count 5.94 Hemoglobin 16.4 Hematocrit 50.5 Mean Corpuscular Volume 85.0 Mean Corpuscular Hemoglobin 27.6 L Mean Corpuscular Hemoglobin Concent 32.5 Red Cell Distribution Width 13.6 Platelet Count 288 Mean Platelet Volume 10.4 Neutrophils % 40.4 Lymphocytes % 48.3 Monocytes % 8.8 Eosinophils % 2.0 Basophils % 0.4 Nucleated Red Blood Cells % 0.0 Neutrophils # 2.9 Lymphocytes # 3.5 H Monocytes # 0.6 Eosinophils # 0.1 Basophils # 0.0 Nucleated Red Blood Cells # 0.0 Sodium Level 140 Potassium Level 3.9 Chloride Level 106 Carbon Dioxide Level 20 L Anion Gap 18 H Blood Urea Nitrogen 29 H Creatinine 1.52 H Glucose Level 105 Calcium Level 9.8 Phosphorus Level 4.5 Magnesium Level 1.8 Troponin I 0.101 B-Type Natriuretic Peptide 1150 H Albumin 4.3 Triglycerides Level 216 H Cholesterol Level 219 H LDL Cholesterol, Calculated 143 HDL Cholesterol 33 Cholesterol/HDL Ratio 6.6 Medications Medications Current Medications Aspirin (Aspirin) 81 mg DAILY PO Last administered on 05/30/17 08:17; Admin Dose 81 MG; Start 05/29/17 at 09:00 Losartan Potassium (Cozaar) 100 mg DAILY PO Last administered on 05/30/17 08: 18; Admin Dose 100 MG; Start 05/29/17 at 09:00 Phenytoin (Dilantin) 300 mg HS PO Last administered on 05/29/17 20:53; Admin Dose 300 MG; Start 05/28/17 at 21:00 Olanzapine (Zyprexa) 7.5 mg DAILY PO Last administered on 05/30/17 08:19; Admin Dose 7.5 MG; Start 05/29/17 at 09:00 Hydralazine HCl (Apresoline) 10 mg Q4H PRN IV ELEVATED SYSTOLIC BP Last administered on 05/29/17 06:05; Admin Dose 10 MG; Start 05/28/17 at 17:30 Ondansetron HCl (Zofran Inj) 4 mg Q6H PRN IV NAUSEA AND/OR VOMITING; Start at 17:30 Acetaminophen (Tylenol Tab) 650 mg Q6H PRN PO PAIN LEVEL 1-3 OR FEVER; Start at 17:30 Docusate Sodium (Colace) 100 mg Q12H PRN PO CONSTIPATION; Start 05/28/17 at 17: 30 Famotidine (Pepcid) 20 mg Q12 PO Last administered on 05/30/17 08:17; Admin Dose 20 MG; Start 05/28/17 at 21:00 Heparin Sodium (Porcine) (Heparin (5000 Units/0.5 ml)) 5,000 unit Q8 SC Last administered on 05/30/17 13:36; Admin Dose 5,000 UNIT; Start 05/28/17 at 22:00 Thiamine HCl (Vitamin B1) 100 mg DAILY PO Last administered on 05/30/17 08:21 ; Admin Dose 100 MG; Start 05/29/17 at 09:00 Folic Acid (Folic Acid) 0.4 mg DAILY PO Last administered on 05/30/17 08:18; Admin Dose 0.4 MG; Start 05/29/17 at 09:00 Lorazepam (Ativan) 1 mg Q5M PRN IV CONTROL WITHDRAWAL SYMPTOMS Last administered on 05/28/17 22:03; Admin Dose 1 MG; Start 05/28/17 at 18:00 Salmeterol Xinafoate/ Fluticasone (Advair 250/50 Diskus) 1 inh BID INH Last administered on 05/30/17 08:16; Admin Dose 1 INH; Start 05/28/17 at 21:00 Nicotine (Nicoderm 21 Mg/ 24hr) 1 patch DAILY TRANSDERM Last administered on 08:15; Admin Dose 1 PATCH; Start 05/28/17 at 18:00 Hydralazine HCl (Apresoline) 25 mg Q8 PO Last administered on 05/30/17 13:34; Admin Dose 25 MG; Start 05/29/17 at 22:00 Amlodipine Besylate (Norvasc) 2.5 mg DAILY PO Last administered on 05/30/17 15 :44; Admin Dose 2.5 MG; Start 05/30/17 at 15:30 ALLYSON WALDROP May 30, 2017 16:50
[2017-05-30] MEDS ORDERED: MAGNESIUM SULFATE 2 GM/50 ML 50 ML IVPB ONE (17:00)
[2017-05-30] MEDS: FUROSEMIDE 20 MG INJ IV SCH (17:23)
[2017-05-30] MEDS: METOPROLOL 25 MG TAB PO SCH (20:59)
[2017-05-30] MEDS: PHENYTOIN 100 MG CAP PO SCH (20:59)
[2017-05-31] VITALS (12 sets, daily range): BP systolic 134–178; BP diastolic 86–91; PULSE 61–112; RESP 18–20
[2017-05-31] MEDS: hydrALAzine 20 MG INJ IV PRN (04:29)
[2017-05-31] MEDS: FUROSEMIDE 20 MG INJ IV SCH ×2 (06:39→17:52)
[2017-05-31] MEDS: HEPARIN 5,000 UNIT/0.5 ML VIAL SC SCH ×3 (06:48→21:37)
[2017-05-31 07:18] LABS: BASOPHILS % 0.5 % (0.0-2.0); EOSINOPHILS # 0.2 10^3/ul (0.0-0.5); EOSINOPHILS % 3.4 % (0.0-7.0); HEMATOCRIT 50.1 % (42.0-52.0); HEMOGLOBIN 16.3 g/dl (14.0-18.0); LYMPHOCYTES # 3.1 10^3/ul (0.8-2.9); LYMPHOCYTES % 55.2 % (15.0-51.0); MEAN CORPUSCULAR HEMOGLOBIN 27.3 pg (29.0-33.0); MEAN CORPUSCULAR HGB CONC 32.5 g/dl (32.0-37.0); MEAN CORPUSCULAR VOLUME 84.1 fl (82.0-101.0); MEAN PLATELET VOLUME 10.8 fl (7.4-10.4); MONOCYTE # 0.5 10^3/ul (0.3-0.9); MONOCYTES % 9.6 % (0.0-11.0); NEUTROPHIL # 1.8 10^3/ul (1.6-7.5); NEUTROPHILS % 31.1 % (39.0-77.0); PLATELET COUNT 276 10^3/UL (140-415); RED BLOOD COUNT 5.96 10^6/ul (4.70-6.10); RED CELL DISTRIBUTION WIDTH 13.6 % (11.5-14.5); WHITE BLOOD COUNT 5.6 10^3/ul (4.8-10.8)
[2017-05-31 07:53] LABS: CALCIUM 9.2 mg/dl (8.4-10.2); CREATININE 1.36 mg/dl (0.61-1.24); POTASSIUM 3.8 mmol/L (3.5-5.1)
[2017-05-31] MEDS: NICOTINE (21 MG/24 HR) PATCH TRANSDERM SCH (08:34)
[2017-05-31] MEDS: SALMETEROL/FLUTICASONE 250/50 INHA INH SCH ×2 (08:34→20:42)
[2017-05-31] MEDS: OLANZAPINE 5 MG TAB PO SCH (08:35)
[2017-05-31] MEDS: FOLIC ACID 0.4 MG TAB PO SCH (08:35)
[2017-05-31] MEDS: LOSARTAN 50 MG TAB PO SCH (08:35)
[2017-05-31] MEDS: AMLODIPINE 2.5 MG TAB PO SCH (08:35)
[2017-05-31] MEDS: METOPROLOL 25 MG TAB PO SCH ×2 (08:36→20:43)
[2017-05-31] MEDS: THIAMINE 100 MG TAB PO SCH (08:36)
[2017-05-31] MEDS: ASPIRIN 81 MG TAB PO SCH (08:36)
[2017-05-31] MEDS: FAMOTIDINE 20 MG TAB PO SCH ×2 (08:36→20:42)
[2017-05-31] MEDS ORDERED: REGADENOSON 0.4 MG/5 ML SYG ONE (10:43)
--- NOTE | 2017-05-31 11:50 | CARRPT ---
DATE OF PROCEDURE: 05/31/2017 TYPE OF PROCEDURE: Pharmacologic nuclear stress test. PROCEDURE: With the patient in supine position, under continuous electrocardiographic monitoring, 0.4 mg of radio-adenosine were injected intravenously over a period of 20 seconds. Subsequently, the dose of radionuclide was injected and the patient was transferred to myocardial perfusion scan. The patient tolerated the procedure well with transient lightheadedness. In recovery, electrocardiogram showed a short period of ventricular bigeminy, then reversed to normal sinus rhythm. For results of the radionuclide study, please refer to the radiologist's report. Dictated By: AGUSTINA TRAMMELL MD /richard/rosanna /Document#: [id number]
--- NOTE | 2017-05-31 14:55 | RADRPT ---
PROCEDURE: Nuclear medicine myocardial stress and rest scan. CLINICAL INDICATION: Chest pain. TECHNIQUE: The patient was stressed with 0.4 mg IV Lexiscan. 10 mCi technetium 99m Tetrofosmin ( Myoview) was administered rest. 30 mCi technetium 99m Tetrofosmin (Myoview) was administered duri ng stress. Images were obtained and reconstructed in the short axis, horizontal long axis, and vert ical long axis. Gated images were obtained and ejection fraction was calculated. COMPARISON: No prior study is available for comparison. FINDINGS: The stress and rest images demonstrate normal uptake throughout. There is no fixed abnormality or r eversible abnormality. There is no evidence of transient ischemic dilatation. Wall motion is normal. There is normal wall thickening during systole. Ejection fraction at stress is 42%. IMPRESSION: 1. No evidence of stress induced myocardial ischemia. 2. Ejection fraction at stress is 42%. RPTAT: QQ .Doroteo Gutierrez MD, MD Date Time Electronically viewed and signed by .Doroteo Gutierrez MD, on 05/31/2017 14:55 .R/
--- NOTE | 2017-05-31 16:56 | PN ---
Date/Time of Note Date/Time of Note DATE: 05/31/17 TIME: 16:52 Assessment/Plan VTE Prophylaxis VTE Prophylaxis Intervention: heparin Lines/Catheters IV Catheter Type (from [facility]): Peripheral IV Urinary Cath still in place: No Assessment/Plan Assessment/Plan 1. Acute on chronic diastolic heart failure - cardiology on board and recommendations appreciated - Will continue on Lasix, currently 20mg IV BID - continue monitoring I/O and daily weights - encouraged patient to abstain from ETOH and smoking 2. Hypertensive urgency emergency - will continue monitoring and adjusting medications as needed 3. Acute Renal insufficiency - improving on reduced Lasix dose 4. Dyslipidemia 5. Cirrhosis by chart 6. Seizure disorder, on Dilantin 7. Bipolar disorder. stable 8. ETOH abuse. - no signs of withdrawal Subjective 24 Hr Interval Summary Free Text/Dictation patient doing well and tolerated the stress test well although states it was boring. States having easier time breathing and denies any new complaints. Patient has been having NSVT and states he experiencing palpitations but resolves after medicine. Exam/Review of Systems Vital Signs Vitals Vital Signs Date Time Temp Pulse Resp B/P Pulse Ox O2 Delivery O2 Flow Rate FiO2 05/31/17 15:55 98.6 70 19 154/90 96 05/31/17 08:00 Nasal Cannula 2.0 Intake and Output 05/30/17 05/30/17 05/31/17 15:00 23:00 07:00 Intake Total 720 ml Balance 720 ml Exam General: NAD, awake and alert Neck: +JVD CVS: regular rate, rhythm. no murmurs Lungs: Diminished at bases. no wheezes or crackles Abd: soft, NT, ND, no rebound or guarding Ext: no edema, cyanosis, or clubbing Results Result Diagram: 05/31/1762005/31/17620 Results 24 hrs Laboratory Tests Test 05/31/17 06:21 White Blood Count 5.6 # Red Blood Count 5.96 Hemoglobin 16.3 Hematocrit 50.1 Mean Corpuscular Volume 84.1 Mean Corpuscular Hemoglobin 27.3 L Mean Corpuscular Hemoglobin Concent 32.5 Red Cell Distribution Width 13.6 Platelet Count 276 Mean Platelet Volume 10.8 H Neutrophils % 31.1 L Lymphocytes % 55.2 H Monocytes % 9.6 Eosinophils % 3.4 Basophils % 0.5 Nucleated Red Blood Cells % 0.0 Neutrophils # 1.8 Lymphocytes # 3.1 H Monocytes # 0.5 Eosinophils # 0.2 Basophils # 0.0 Nucleated Red Blood Cells # 0.0 Sodium Level 140 Potassium Level 3.8 Chloride Level 105 Carbon Dioxide Level 22 Anion Gap 17 H Blood Urea Nitrogen 29 H Creatinine 1.36 H Glucose Level 106 Calcium Level 9.2 Magnesium Level 2.2 Medications Medications Current Medications Aspirin (Aspirin) 81 mg DAILY PO Last administered on 05/31/17 08:36; Admin Dose 81 MG; Start 05/29/17 at 09:00 Losartan Potassium (Cozaar) 100 mg DAILY PO Last administered on 05/31/17 08: 35; Admin Dose 100 MG; Start 05/29/17 at 09:00 Phenytoin (Dilantin) 300 mg HS PO Last administered on 05/30/17 20:59; Admin Dose 300 MG; Start 05/28/17 at 21:00 Olanzapine (Zyprexa) 7.5 mg DAILY PO Last administered on 05/31/17 08:35; Admin Dose 7.5 MG; Start 05/29/17 at 09:00 Hydralazine HCl (Apresoline) 10 mg Q4H PRN IV ELEVATED SYSTOLIC BP Last administered on 05/31/17 04:29; Admin Dose 10 MG; Start 05/28/17 at 17:30 Ondansetron HCl (Zofran Inj) 4 mg Q6H PRN IV NAUSEA AND/OR VOMITING; Start at 17:30 Acetaminophen (Tylenol Tab) 650 mg Q6H PRN PO PAIN LEVEL 1-3 OR FEVER; Start at 17:30 Docusate Sodium (Colace) 100 mg Q12H PRN PO CONSTIPATION; Start 05/28/17 at 17: 30 Famotidine (Pepcid) 20 mg Q12 PO Last administered on 05/31/17 08:36; Admin Dose 20 MG; Start 05/28/17 at 21:00 Heparin Sodium (Porcine) (Heparin (5000 Units/0.5 ml)) 5,000 unit Q8 SC Last administered on 05/31/17 14:00; Admin Dose 5,000 UNIT; Start 05/28/17 at 22:00 Thiamine HCl (Vitamin B1) 100 mg DAILY PO Last administered on 05/31/17 08:36 ; Admin Dose 100 MG; Start 05/29/17 at 09:00 Folic Acid (Folic Acid) 0.4 mg DAILY PO Last administered on 05/31/17 08:35; Admin Dose 0.4 MG; Start 05/29/17 at 09:00 Lorazepam (Ativan) 1 mg Q5M PRN IV CONTROL WITHDRAWAL SYMPTOMS Last administered on 05/28/17 22:03; Admin Dose 1 MG; Start 05/28/17 at 18:00 Salmeterol Xinafoate/ Fluticasone (Advair 250/50 Diskus) 1 inh BID INH Last administered on 05/31/17 08:34; Admin Dose 1 INH; Start 05/28/17 at 21:00 Nicotine (Nicoderm 21 Mg/ 24hr) 1 patch DAILY TRANSDERM Last administered on 08:34; Admin Dose 1 PATCH; Start 05/28/17 at 18:00 Hydralazine HCl (Apresoline) 25 mg Q8 PO Last administered on 05/31/17 13:59; Admin Dose 25 MG; Start 05/29/17 at 22:00 Amlodipine Besylate (Norvasc) 2.5 mg DAILY PO Last administered on 05/31/17 08 :35; Admin Dose 2.5 MG; Start 05/30/17 at 15:30 Metoprolol Tartrate (Lopressor) 12.5 mg BID PO Last administered on 05/31/17 08:36; Admin Dose 12.5 MG; Start 05/30/17 at 21:00 ADDISON ZIMMER MD May 31, 2017 16:56
[2017-05-31] MEDS: PHENYTOIN 100 MG CAP PO SCH (20:43)
--- NOTE | 2017-05-31 21:20 | PN ---
Date/Time of Note Date/Time of Note DATE: 05/31/17 TIME: 21:10 Assessment/Plan VTE Prophylaxis VTE Prophylaxis Intervention: heparin Lines/Catheters IV Catheter Type (from Nrs): Peripheral IV Urinary Cath still in place: No Subjective 24 Hr Interval Summary Free Text/Dictation Assessment/Plan 05/31/2017 Assessment/Plan Chief Complaint/Hosp Course IMPRESSION: 1. Congestive heart failure exacerbation, question systolic vs diastolic, likely acute on chronic. 2. Abnormal electrocardiogram. Assess for acute coronary syndrome with anterolateral T-wave inversions. 3. Hypertensive urgency emergency. 4. Dyslipidemia. 5. Cirrhosis by chart biopsy. 6. Renal insufficiency, acute onset. 7. Seizure disorder. 8. Psych disorder. 9. Possible ETOH abuse. 10. WCT-concerning for NSVT recurrent today-negative trop x 3 Recc: -Tele -Continue norvasc/hydralazine/losartan -Will review echo -keep k>4.0 and Mg>2.0 as possible given NSVT -would resume low dose BB as tolerated given NSVT -Continue lasix and follow volume status/creatnine closely Problems: Consultation Date/Type/Reason Admit Date/Time May 28, 2017 at 16:30 Initial Consult Date 05/29/17 Type of Consultation: Cardiology Reason for Consultation CHF Referring Provider: RIVER LU Exam/Review of Systems Vital Signs Vitals Vital Signs Date Time Temp Pulse Resp B/P Pulse Ox O2 Delivery O2 Flow Rate FiO2 05/30/17 15:51 97.5 71 19 147/75 95 05/29/17 21:29 Nasal Cannula 2.0 Intake and Output 05/29/17 05/29/17 05/30/17 15:00 23:00 07:00 Intake Total 50 ml 650 ml 200 ml Output Total 800 ml 500 ml Balance 50 ml -150 ml -300 ml Exam Review of Systems: CONSTITUTIONAL: No fevers, chills. PULMONARY: No sob CARDIOVASCULAR: No chest pain/palpitations GASTROINTESTINAL: No nausea/vomiting. GENITOURINARY: No hematuria/dysuria. MUSCULOSKELETAL: No myagias/arthalgias. PSYCHIATRIC: The patient denies depression. NEUROLOGIC: No weakness Constitutional: alert Psych: no complaints Head: normocephalic ENMT: mucosa pink and moist Neck: jvd (9 cm water), supple Respiratory: diminished breath sounds (at bases/B) Cardiovascular: regular rate and rhythm Gastrointestinal: non-tender, soft Musculoskeletal: muscle tone (nor) Extremities: other (none) Neurological: other (No focal deficits) Results Result Diagram: 05/30/17 0648 05/30/17 0648 Results 24 hrs Laboratory Tests Test 05/30/17 06:48 White Blood Count 7.2 # Red Blood Count 5.94 Hemoglobin 16.4 Hematocrit 50.5 Mean Corpuscular Volume 85.0 Mean Corpuscular Hemoglobin 27.6 L Mean Corpuscular Hemoglobin Concent 32.5 Red Cell Distribution Width 13.6 Platelet Count 288 Mean Platelet Volume 10.4 Neutrophils % 40.4 Lymphocytes % 48.3 Monocytes % 8.8 Eosinophils % 2.0 Basophils % 0.4 Nucleated Red Blood Cells % 0.0 Neutrophils # 2.9 Lymphocytes # 3.5 H Monocytes # 0.6 Eosinophils # 0.1 Basophils # 0.0 Nucleated Red Blood Cells # 0.0 Sodium Level 140 Potassium Level 3.9 Chloride Level 106 Carbon Dioxide Level 20 L Anion Gap 18 H Blood Urea Nitrogen 29 H Creatinine 1.52 H Glucose Level 105 Calcium Level 9.8 Phosphorus Level 4.5 Magnesium Level 1.8 Troponin I 0.101 B-Type Natriuretic Peptide 1150 H Albumin 4.3 Triglycerides Level 216 H Cholesterol Level 219 H LDL Cholesterol, Calculated 143 HDL Cholesterol 33 Cholesterol/HDL Ratio 6.6 Medications Medications Current Medications Aspirin (Aspirin) 81 mg DAILY PO Last administered on 05/30/17 08:17; Admin Dose 81 MG; Start 05/29/17 at 09:00 Losartan Potassium (Cozaar) 100 mg DAILY PO Last administered on 05/30/17 08: 18; Admin Dose 100 MG; Start 05/29/17 at 09:00 Phenytoin (Dilantin) 300 mg HS PO Last administered on 05/29/17 20:53; Admin Dose 300 MG; Start 05/28/17 at 21:00 Olanzapine (Zyprexa) 7.5 mg DAILY PO Last administered on 05/30/17 08:19; Admin Dose 7.5 MG; Start 05/29/17 at 09:00 Hydralazine HCl (Apresoline) 10 mg Q4H PRN IV ELEVATED SYSTOLIC BP Last administered on 05/29/17 06:05; Admin Dose 10 MG; Start 05/28/17 at 17:30 Ondansetron HCl (Zofran Inj) 4 mg Q6H PRN IV NAUSEA AND/OR VOMITING; Start at 17:30 Acetaminophen (Tylenol Tab) 650 mg Q6H PRN PO PAIN LEVEL 1-3 OR FEVER; Start at 17:30 Docusate Sodium (Colace) 100 mg Q12H PRN PO CONSTIPATION; Start 05/28/17 at 17: 30 Famotidine (Pepcid) 20 mg Q12 PO Last administered on 05/30/17 08:17; Admin Dose 20 MG; Start 05/28/17 at 21:00 Heparin Sodium (Porcine) (Heparin (5000 Units/0.5 ml)) 5,000 unit Q8 SC Last administered on 05/30/17 13:36; Admin Dose 5,000 UNIT; Start 05/28/17 at 22:00 Thiamine HCl (Vitamin B1) 100 mg DAILY PO Last administered on 05/30/17 08:21 ; Admin Dose 100 MG; Start 05/29/17 at 09:00 Folic Acid (Folic Acid) 0.4 mg DAILY PO Last administered on 05/30/17 08:18; Admin Dose 0.4 MG; Start 05/29/17 at 09:00 Lorazepam (Ativan) 1 mg Q5M PRN IV CONTROL WITHDRAWAL SYMPTOMS Last administered on 05/28/17 22:03; Admin Dose 1 MG; Start 05/28/17 at 18:00 Salmeterol Xinafoate/ Fluticasone (Advair 250/50 Diskus) 1 inh BID INH Last administered on 05/30/17 08:16; Admin Dose 1 INH; Start 05/28/17 at 21:00 Nicotine (Nicoderm 21 Mg/ 24hr) 1 patch DAILY TRANSDERM Last administered on 08:15; Admin Dose 1 PATCH; Start 05/28/17 at 18:00 Hydralazine HCl (Apresoline) 25 mg Q8 PO Last administered on 05/30/17 13:34; Admin Dose 25 MG; Start 05/29/17 at 22:00 Amlodipine Besylate (Norvasc) 2.5 mg DAILY PO Last administered on 05/30/17 15 :44; Admin Dose 2.5 MG; Start 05/30/17 at 15:30 Patient had Lexiscan nuclear stress test today; Patient interviewed and examined: Awaiting radiologist report. AGUSTINA TRAMMELL MD Exam/Review of Systems Vital Signs Vitals Vital Signs Date Time Temp Pulse Resp B/P Pulse Ox O2 Delivery O2 Flow Rate FiO2 05/31/17 20:08 62 05/31/17 20:00 98.4 18 138/88 93 05/31/17 08:00 Nasal Cannula 2.0 Intake and Output 05/30/17 05/30/17 05/31/17 15:00 23:00 07:00 Intake Total 720 ml Balance 720 ml Results Result Diagram: 05/31/17 0621 05/31/17 0621 Results 24 hrs Laboratory Tests Test 05/31/17 06:21 White Blood Count 5.6 # Red Blood Count 5.96 Hemoglobin 16.3 Hematocrit 50.1 Mean Corpuscular Volume 84.1 Mean Corpuscular Hemoglobin 27.3 L Mean Corpuscular Hemoglobin Concent 32.5 Red Cell Distribution Width 13.6 Platelet Count 276 Mean Platelet Volume 10.8 H Neutrophils % 31.1 L Lymphocytes % 55.2 H Monocytes % 9.6 Eosinophils % 3.4 Basophils % 0.5 Nucleated Red Blood Cells % 0.0 Neutrophils # 1.8 Lymphocytes # 3.1 H Monocytes # 0.5 Eosinophils # 0.2 Basophils # 0.0 Nucleated Red Blood Cells # 0.0 Sodium Level 140 Potassium Level 3.8 Chloride Level 105 Carbon Dioxide Level 22 Anion Gap 17 H Blood Urea Nitrogen 29 H Creatinine 1.36 H Glucose Level 106 Calcium Level 9.2 Magnesium Level 2.2 Medications Medications Current Medications Aspirin (Aspirin) 81 mg DAILY PO Last administered on 05/31/17 08:36; Admin Dose 81 MG; Start 05/29/17 at 09:00 Losartan Potassium (Cozaar) 100 mg DAILY PO Last administered on 05/31/17 08: 35; Admin Dose 100 MG; Start 05/29/17 at 09:00 Phenytoin (Dilantin) 300 mg HS PO Last administered on 05/31/17 20:43; Admin Dose 300 MG; Start 05/28/17 at 21:00 Olanzapine (Zyprexa) 7.5 mg DAILY PO Last administered on 05/31/17 08:35; Admin Dose 7.5 MG; Start 05/29/17 at 09:00 Hydralazine HCl (Apresoline) 10 mg Q4H PRN IV ELEVATED SYSTOLIC BP Last administered on 05/31/17 04:29; Admin Dose 10 MG; Start 05/28/17 at 17:30 Ondansetron HCl (Zofran Inj) 4 mg Q6H PRN IV NAUSEA AND/OR VOMITING; Start at 17:30 Acetaminophen (Tylenol Tab) 650 mg Q6H PRN PO PAIN LEVEL 1-3 OR FEVER; Start at 17:30 Docusate Sodium (Colace) 100 mg Q12H PRN PO CONSTIPATION; Start 05/28/17 at 17: 30 Famotidine (Pepcid) 20 mg Q12 PO Last administered on 05/31/17 20:42; Admin Dose 20 MG; Start 05/28/17 at 21:00 Heparin Sodium (Porcine) (Heparin (5000 Units/0.5 ml)) 5,000 unit Q8 SC Last administered on 05/31/17 14:00; Admin Dose 5,000 UNIT; Start 05/28/17 at 22:00 Thiamine HCl (Vitamin B1) 100 mg DAILY PO Last administered on 05/31/17 08:36 ; Admin Dose 100 MG; Start 05/29/17 at 09:00 Folic Acid (Folic Acid) 0.4 mg DAILY PO Last administered on 05/31/17 08:35; Admin Dose 0.4 MG; Start 05/29/17 at 09:00 Lorazepam (Ativan) 1 mg Q5M PRN IV CONTROL WITHDRAWAL SYMPTOMS Last administered on 05/28/17 22:03; Admin Dose 1 MG; Start 05/28/17 at 18:00 Salmeterol Xinafoate/ Fluticasone (Advair 250/50 Diskus) 1 inh BID INH Last administered on 05/31/17 20:42; Admin Dose 1 INH; Start 05/28/17 at 21:00 Nicotine (Nicoderm 21 Mg/ 24hr) 1 patch DAILY TRANSDERM Last administered on 08:34; Admin Dose 1 PATCH; Start 05/28/17 at 18:00 Hydralazine HCl (Apresoline) 25 mg Q8 PO Last administered on 05/31/17 13:59; Admin Dose 25 MG; Start 05/29/17 at 22:00 Amlodipine Besylate (Norvasc) 2.5 mg DAILY PO Last administered on 05/31/17 08 :35; Admin Dose 2.5 MG; Start 05/30/17 at 15:30 Metoprolol Tartrate (Lopressor) 12.5 mg BID PO Last administered on 05/31/17 20:43; Admin Dose 12.5 MG; Start 05/30/17 at 21:00 AGUSTINA TRAMMELL MD May 31, 2017 21:20
[2017-06-01] VITALS (13 sets, daily range): BP systolic 133–164; BP diastolic 61–104; PULSE 55–77; RESP 18–20
[2017-06-01] MEDS: FUROSEMIDE 20 MG INJ IV SCH (05:42)
[2017-06-01] MEDS: HEPARIN 5,000 UNIT/0.5 ML VIAL SC SCH ×3 (05:44→21:42)
[2017-06-01 07:18] LABS: BASOPHILS % 0.5 % (0.0-2.0); EOSINOPHILS # 0.2 10^3/ul (0.0-0.5); EOSINOPHILS % 3.8 % (0.0-7.0); HEMATOCRIT 50.2 % (42.0-52.0); HEMOGLOBIN 16.3 g/dl (14.0-18.0); LYMPHOCYTES # 3.5 10^3/ul (0.8-2.9); LYMPHOCYTES % 57.1 % (15.0-51.0); MEAN CORPUSCULAR HEMOGLOBIN 27.6 pg (29.0-33.0); MEAN CORPUSCULAR HGB CONC 32.5 g/dl (32.0-37.0); MEAN CORPUSCULAR VOLUME 85.1 fl (82.0-101.0); MEAN PLATELET VOLUME 10.5 fl (7.4-10.4); MONOCYTE # 0.5 10^3/ul (0.3-0.9); MONOCYTES % 8.6 % (0.0-11.0); NEUTROPHIL # 1.8 10^3/ul (1.6-7.5); NEUTROPHILS % 29.7 % (39.0-77.0); PLATELET COUNT 265 10^3/UL (140-415); RED CELL DISTRIBUTION WIDTH 13.7 % (11.5-14.5); WHITE BLOOD COUNT 6.1 10^3/ul (4.8-10.8)
[2017-06-01 07:29] LABS: ALBUMIN 4.5 g/dl (3.3-4.9); CALCIUM 9.5 mg/dl (8.4-10.2); CREATININE 1.45 mg/dl (0.61-1.24); MAGNESIUM 1.8 mg/dl (1.7-2.5); POTASSIUM 4.1 mmol/L (3.5-5.1)
[2017-06-01] MEDS: ASPIRIN 81 MG TAB PO SCH (08:39)
[2017-06-01] MEDS: OLANZAPINE 5 MG TAB PO SCH (08:39)
[2017-06-01] MEDS: FOLIC ACID 0.4 MG TAB PO SCH (08:39)
[2017-06-01] MEDS: LOSARTAN 50 MG TAB PO SCH (08:39)
[2017-06-01] MEDS: THIAMINE 100 MG TAB PO SCH (08:39)
[2017-06-01] MEDS: SALMETEROL/FLUTICASONE 250/50 INHA INH SCH ×2 (08:40→21:34)
[2017-06-01] MEDS: METOPROLOL 25 MG TAB PO SCH ×2 (08:40→21:36)
[2017-06-01] MEDS: AMLODIPINE 2.5 MG TAB PO SCH (08:40)
[2017-06-01] MEDS: FAMOTIDINE 20 MG TAB PO SCH ×2 (08:41→21:36)
[2017-06-01] MEDS: NICOTINE (21 MG/24 HR) PATCH TRANSDERM SCH (09:34)
--- NOTE | 2017-06-01 16:19 | PN ---
Date/Time of Note Date/Time of Note DATE: 06/01/17 TIME: 16:12 Assessment/Plan VTE Prophylaxis VTE Prophylaxis Intervention: ambulation Lines/Catheters IV Catheter Type (from [facility]): Saline Lock Urinary Cath still in place: No Assessment/Plan Assessment/Plan 1. Acute on chronic diastolic heart failure - cardiology on board and recommendations appreciated - Will switch to Lasix 40mg PO daily and monitor renal function. - continue monitoring I/O and daily weights - encouraged patient to abstain from ETOH and smoking 2. Hypertensive urgency emergency - will continue monitoring and adjusting medications as needed - Amlodipine increased to 5mg 3. Acute Renal insufficiency - reduced dose of Lasix - Will continue monitoring and consult nephrology as needed 4. Dyslipidemia 5. Cirrhosis by chart 6. Seizure disorder, on Dilantin 7. Bipolar disorder. stable 8. ETOH abuse. - no signs of withdrawal 9. Disposition - Awaiting clearance from Cardiology and renal function improvement prior to d/c Subjective 24 Hr Interval Summary Free Text/Dictation Patient doing well and no longer c/o SOB. Tolerating diet and no signs of withdrawal. No overnight events and no new complaints. Exam/Review of Systems Vital Signs Vitals Vital Signs Date Time Temp Pulse Resp B/P Pulse Ox O2 Delivery O2 Flow Rate FiO2 06/01/17 16:00 63 06/01/17 15:48 98.0 19 164/96 95 05/31/17 08:00 Nasal Cannula 2.0 Intake and Output 05/31/17 05/31/17 06/01/17 15:00 23:00 07:00 Intake Total 650 ml 800 ml Output Total 300 ml 550 ml Balance -300 ml 100 ml 800 ml Exam General: NAD, awake and alert Neck: no JVD CVS: regular rate, rhythm. no murmurs Lungs: Diminished at bases. no wheezes or crackles Abd: soft, NT, ND, no rebound or guarding Ext: no edema, cyanosis, or clubbing Results Result Diagram: 06/01/17 0650 06/01/17 0650 Results 24 hrs Laboratory Tests Test 06/01/17 06:50 White Blood Count 6.1 Red Blood Count 5.90 Hemoglobin 16.3 Hematocrit 50.2 Mean Corpuscular Volume 85.1 Mean Corpuscular Hemoglobin 27.6 L Mean Corpuscular Hemoglobin Concent 32.5 Red Cell Distribution Width 13.7 Platelet Count 265 Mean Platelet Volume 10.5 H Neutrophils % 29.7 L Lymphocytes % 57.1 H Monocytes % 8.6 Eosinophils % 3.8 Basophils % 0.5 Nucleated Red Blood Cells % 0.0 Neutrophils # 1.8 Lymphocytes # 3.5 H Monocytes # 0.5 Eosinophils # 0.2 Basophils # 0.0 Nucleated Red Blood Cells # 0.0 Sodium Level 142 Potassium Level 4.1 Chloride Level 107 Carbon Dioxide Level 24 Anion Gap 15 Blood Urea Nitrogen 29 H Creatinine 1.45 H Glucose Level 108 Calcium Level 9.5 Phosphorus Level 4.0 Magnesium Level 1.8 Albumin 4.5 Medications Medications Current Medications Aspirin (Aspirin) 81 mg DAILY PO Last administered on 06/01/17 08:39; Admin Dose 81 MG; Start 05/29/17 at 09:00 Losartan Potassium (Cozaar) 100 mg DAILY PO Last administered on 06/01/17 08: 39; Admin Dose 100 MG; Start 05/29/17 at 09:00 Phenytoin (Dilantin) 300 mg HS PO Last administered on 05/31/17 20:43; Admin Dose 300 MG; Start 05/28/17 at 21:00 Olanzapine (Zyprexa) 7.5 mg DAILY PO Last administered on 06/01/17 08:39; Admin Dose 7.5 MG; Start 05/29/17 at 09:00 Hydralazine HCl (Apresoline) 10 mg Q4H PRN IV ELEVATED SYSTOLIC BP Last administered on 05/31/17 04:29; Admin Dose 10 MG; Start 05/28/17 at 17:30 Ondansetron HCl (Zofran Inj) 4 mg Q6H PRN IV NAUSEA AND/OR VOMITING; Start at 17:30 Acetaminophen (Tylenol Tab) 650 mg Q6H PRN PO PAIN LEVEL 1-3 OR FEVER; Start at 17:30 Docusate Sodium (Colace) 100 mg Q12H PRN PO CONSTIPATION; Start 05/28/17 at 17: 30 Famotidine (Pepcid) 20 mg Q12 PO Last administered on 06/01/17 08:41; Admin Dose 20 MG; Start 05/28/17 at 21:00 Heparin Sodium (Porcine) (Heparin (5000 Units/0.5 ml)) 5,000 unit Q8 SC Last administered on 06/01/17 13:40; Admin Dose 5,000 UNIT; Start 05/28/17 at 22:00 Thiamine HCl (Vitamin B1) 100 mg DAILY PO Last administered on 06/01/17 08:39 ; Admin Dose 100 MG; Start 05/29/17 at 09:00 Folic Acid (Folic Acid) 0.4 mg DAILY PO Last administered on 06/01/17 08:39; Admin Dose 0.4 MG; Start 05/29/17 at 09:00 Lorazepam (Ativan) 1 mg Q5M PRN IV CONTROL WITHDRAWAL SYMPTOMS Last administered on 05/28/17 22:03; Admin Dose 1 MG; Start 05/28/17 at 18:00 Salmeterol Xinafoate/ Fluticasone (Advair 250/50 Diskus) 1 inh BID INH Last administered on 06/01/17 08:40; Admin Dose 1 INH; Start 05/28/17 at 21:00 Nicotine (Nicoderm 21 Mg/ 24hr) 1 patch DAILY TRANSDERM Last administered on 09:34; Admin Dose 1 PATCH; Start 05/28/17 at 18:00 Hydralazine HCl (Apresoline) 25 mg Q8 PO Last administered on 06/01/17 13:38; Admin Dose 25 MG; Start 05/29/17 at 22:00 Metoprolol Tartrate (Lopressor) 12.5 mg BID PO Last administered on 06/01/17 08:40; Admin Dose 12.5 MG; Start 05/30/17 at 21:00 Amlodipine Besylate (Norvasc) 5 mg DAILY PO ; Start 06/02/17 at 09:00 ADDISON ZIMMER MD Jun 01, 2017 16:19
--- NOTE | 2017-06-01 16:24 | PN ---
Date/Time of Note Date/Time of Note DATE: 06/01/17 TIME: 15:47 Assessment/Plan VTE Prophylaxis VTE Prophylaxis Intervention: heparin Lines/Catheters IV C[facility]ter Type (from [facility] Saline Lock Urinary Cath still in place: No Subjective 24 Hr Interval Summary Free Text/Dictation PROGRESS NOTE Date/Time of Note Date/Time of Note DATE: 06/01/17 TIME: 3:10 Assessment/Plan VTE Prophylaxis VTE Prophylaxis Intervention: heparin Lines/Catheters IV Catheter Type (from [facility]): Peripheral IV Urinary Cath still in place: No Subjective 24 Hr Interval Summary Free Text/Dictation Assessment/Plan 06/01/2017 Assessment/Plan Chief Complaint/Hosp Course IMPRESSION: 1. Congestive heart failure exacerbation, Systolic and Diastolic, likely acute on chronic. 2. Abnormal electrocardiogram. Acute coronary syndrome was ruled out. 3. Hypertensive urgency emergency. 4. Dyslipidemia. 5. Cirrhosis of liver (by biopsy) 6. Renal insufficiency, acute onset. 7. Seizure disorder. 8. Psych disorder. 9. Possible ETOH abuse. 10. Wide complex tachycardia at admission - cannot rule out recurrent NSVT; negative troponin x 3. Recommendations: - Telemetry - Continue norvasc/hydralazine/losartan for BP control. - Will review echocardiogram - keep k>4.0 and Mg>2.0 as possible given NSVT - resume low dose BB as tolerated given NSVT -Continue lasix and follow volume status/creatnine closely Consultation Date/Type/Reason Admit Date/Time May 28, 2017 at 16:30 Initial Consult Date 05/29/17 Type of Consultation: Cardiology Reason for Consultation CHF Referring Provider: RIVER LU Exam/Review of Systems Vital Signs Vitals signs for 06/01/2017 entered down the page. Recommend discharge with upgraded hydralazine dosing. Digna Rae MD Vital Signs Date Time Temp Pulse Resp B/P Pulse Ox O2 Delivery O2 Flow Rate FiO2 05/30/17 15:51 97.5 71 19 147/75 95 05/29/17 21:29 Nasal Cannula 2.0 Intake and Output 05/29/17 05/29/17 05/30/17 15:00 23:00 07:00 Intake Total 50 ml 650 ml 200 ml Output Total 800 ml 500 ml Balance 50 ml -150 ml -300 ml Exam Review of Systems: CONSTITUTIONAL: No fevers, chills. PULMONARY: No sob CARDIOVASCULAR: No chest pain/palpitations GASTROINTESTINAL: No nausea/vomiting. GENITOURINARY: No hematuria/dysuria. MUSCULOSKELETAL: No myagias/arthalgias. PSYCHIATRIC: The patient denies depression. NEUROLOGIC: No weakness Constitutional: alert Psych: no complaints Head: normocephalic ENMT: mucosa pink and moist Neck: JVD (6 cm water), supple Respiratory: diminished breath sounds (at bases/B) Cardiovascular: regular rate and rhythm Gastrointestinal: non-tender, soft Musculoskeletal: muscle tone (nor) Extremities: other (none) Neurological: other (No focal deficits) Results Result Diagram: 05/30/17 0648 05/30/17 0648 Results 24 hrs Laboratory Tests Test 05/30/17 06:48 White Blood Count 7.2 # Red Blood Count 5.94 Hemoglobin 16.4 Hematocrit 50.5 Mean Corpuscular Volume 85.0 Mean Corpuscular Hemoglobin 27.6 L Mean Corpuscular Hemoglobin Concent 32.5 Red Cell Distribution Width 13.6 Platelet Count 288 Mean Platelet Volume 10.4 Neutrophils % 40.4 Lymphocytes % 48.3 Monocytes % 8.8 Eosinophils % 2.0 Basophils % 0.4 Nucleated Red Blood Cells % 0.0 Neutrophils # 2.9 Lymphocytes # 3.5 H Monocytes # 0.6 Eosinophils # 0.1 Basophils # 0.0 Nucleated Red Blood Cells # 0.0 Sodium Level 140 Potassium Level 3.9 Chloride Level 106 Carbon Dioxide Level 20 L Anion Gap 18 H Blood Urea Nitrogen 29 H Creatinine 1.52 H Glucose Level 105 Calcium Level 9.8 Phosphorus Level 4.5 Magnesium Level 1.8 Troponin I 0.101 B-Type Natriuretic Peptide 1150 H Albumin 4.3 Triglycerides Level 216 H Cholesterol Level 219 H LDL Cholesterol, Calculated 143 HDL Cholesterol 33 Cholesterol/HDL Ratio 6.6 Medications Medications Current Medications Aspirin (Aspirin) 81 mg DAILY PO Last administered on 05/30/17 08:17; Admin Dose 81 MG; Start 05/29/17 at 09:00 Losartan Potassium (Cozaar) 100 mg DAILY PO Last administered on 05/30/17 08: 18; Admin Dose 100 MG; Start 05/29/17 at 09:00 Phenytoin (Dilantin) 300 mg HS PO Last administered on 05/29/17 20:53; Admin Dose 300 MG; Start 05/28/17 at 21:00 Olanzapine (Zyprexa) 7.5 mg DAILY PO Last administered on 05/30/17 08:19; Admin Dose 7.5 MG; Start 05/29/17 at 09:00 Hydralazine HCl (Apresoline) 10 mg Q4H PRN IV ELEVATED SYSTOLIC BP Last administered on 05/29/17 06:05; Admin Dose 10 MG; Start 05/28/17 at 17:30 Ondansetron HCl (Zofran Inj) 4 mg Q6H PRN IV NAUSEA AND/OR VOMITING; Start at 17:30 Acetaminophen (Tylenol Tab) 650 mg Q6H PRN PO PAIN LEVEL 1-3 OR FEVER; Start at 17:30 Docusate Sodium (Colace) 100 mg Q12H PRN PO CONSTIPATION; Start 05/28/17 at 17: 30 Famotidine (Pepcid) 20 mg Q12 PO Last administered on 05/30/17 08:17; Admin Dose 20 MG; Start 05/28/17 at 21:00 Heparin Sodium (Porcine) (Heparin (5000 Units/0.5 ml)) 5,000 unit Q8 SC Last administered on 05/30/17 13:36; Admin Dose 5,000 UNIT; Start 05/28/17 at 22:00 Thiamine HCl (Vitamin B1) 100 mg DAILY PO Last administered on 05/30/17 08:21 ; Admin Dose 100 MG; Start 05/29/17 at 09:00 Folic Acid (Folic Acid) 0.4 mg DAILY PO Last administered on 05/30/17 08:18; Admin Dose 0.4 MG; Start 05/29/17 at 09:00 Lorazepam (Ativan) 1 mg Q5M PRN IV CONTROL WITHDRAWAL SYMPTOMS Last administered on 05/28/17 22:03; Admin Dose 1 MG; Start 05/28/17 at 18:00 Salmeterol Xinafoate/ Fluticasone (Advair 250/50 Diskus) 1 inh BID INH Last administered on 05/30/17 08:16; Admin Dose 1 INH; Start 05/28/17 at 21:00 Nicotine (Nicoderm 21 Mg/ 24hr) 1 patch DAILY TRANSDERM Last administered on 08:15; Admin Dose 1 PATCH; Start 05/28/17 at 18:00 Hydralazine HCl (Apresoline) 25 mg Q8 PO Last administered on 05/30/17 13:34; Admin Dose 25 MG; Start 05/29/17 at 22:00 Amlodipine Besylate (Norvasc) 2.5 mg DAILY PO Last administered on 05/30/17 15 :44; Admin Dose 2.5 MG; Start 05/30/17 at 15:30 Patient had Lexiscan nuclear stress test 05/31/2017; Patient interviewed and examined: Patient asymptomatic. Temp: 97.2 ; BP: 133/92 ; P: 62, regular ; SaO2: 96%. Radiologist report : LVEF 42% ; No ischemia. DIGNA RAE MD Exam/Review of Systems Vital Signs Vitals Vital Signs Date Time Temp Pulse Resp B/P Pulse Ox O2 Delivery O2 Flow Rate FiO2 05/31/17 20:08 62 05/31/17 20:00 98.4 18 138/88 93 05/31/17 08:00 Nasal Cannula 2.0 Intake and Output 05/30/17 05/30/17 05/31/17 15:00 23:00 07:00 Intake Total 720 ml Balance 720 ml Results Result Diagram: 05/31/17 0621 05/31/17 0621 Results 24 hrs Laboratory Tests Test 05/31/17 06:21 White Blood Count 5.6 # Red Blood Count 5.96 Hemoglobin 16.3 Hematocrit 50.1 Mean Corpuscular Volume 84.1 Mean Corpuscular Hemoglobin 27.3 L Mean Corpuscular Hemoglobin Concent 32.5 Red Cell Distribution Width 13.6 Platelet Count 276 Mean Platelet Volume 10.8 H Neutrophils % 31.1 L Lymphocytes % 55.2 H Monocytes % 9.6 Eosinophils % 3.4 Basophils % 0.5 Nucleated Red Blood Cells % 0.0 Neutrophils # 1.8 Lymphocytes # 3.1 H Monocytes # 0.5 Eosinophils # 0.2 Basophils # 0.0 Nucleated Red Blood Cells # 0.0 Sodium Level 140 Potassium Level 3.8 Chloride Level 105 Carbon Dioxide Level 22 Anion Gap 17 H Blood Urea Nitrogen 29 H Creatinine 1.36 H Glucose Level 106 Calcium Level 9.2 Magnesium Level 2.2 Medications Medications Current Medications Aspirin (Aspirin) 81 mg DAILY PO Last administered on 05/31/17 08:36; Admin Dose 81 MG; Start 05/29/17 at 09:00 Losartan Potassium (Cozaar) 100 mg DAILY PO Last administered on 05/31/17 08: 35; Admin Dose 100 MG; Start 05/29/17 at 09:00 Phenytoin (Dilantin) 300 mg HS PO Last administered on 05/31/17 20:43; Admin Dose 300 MG; Start 05/28/17 at 21:00 Olanzapine (Zyprexa) 7.5 mg DAILY PO Last administered on 05/31/17 08:35; Admin Dose 7.5 MG; Start 05/29/17 at 09:00 Hydralazine HCl (Apresoline) 10 mg Q4H PRN IV ELEVATED SYSTOLIC BP Last administered on 05/31/17 04:29; Admin Dose 10 MG; Start 05/28/17 at 17:30 Ondansetron HCl (Zofran Inj) 4 mg Q6H PRN IV NAUSEA AND/OR VOMITING; Start at 17:30 Acetaminophen (Tylenol Tab) 650 mg Q6H PRN PO PAIN LEVEL 1-3 OR FEVER; Start at 17:30 Docusate Sodium (Colace) 100 mg Q12H PRN PO CONSTIPATION; Start 05/28/17 at 17: 30 Famotidine (Pepcid) 20 mg Q12 PO Last administered on 05/31/17 20:42; Admin Dose 20 MG; Start 05/28/17 at 21:00 Heparin Sodium (Porcine) (Heparin (5000 Units/0.5 ml)) 5,000 unit Q8 SC Last administered on 05/31/17 14:00; Admin Dose 5,000 UNIT; Start 05/28/17 at 22:00 Thiamine HCl (Vitamin B1) 100 mg DAILY PO Last administered on 05/31/17 08:36 ; Admin Dose 100 MG; Start 05/29/17 at 09:00 Folic Acid (Folic Acid) 0.4 mg DAILY PO Last administered on 05/31/17 08:35; Admin Dose 0.4 MG; Start 05/29/17 at 09:00 Lorazepam (Ativan) 1 mg Q5M PRN IV CONTROL WITHDRAWAL SYMPTOMS Last administered on 05/28/17 22:03; Admin Dose 1 MG; Start 05/28/17 at 18:00 Salmeterol Xinafoate/ Fluticasone (Advair 250/50 Diskus) 1 inh BID INH Last administered on 05/31/17 20:42; Admin Dose 1 INH; Start 05/28/17 at 21:00 Nicotine (Nicoderm 21 Mg/ 24hr) 1 patch DAILY TRANSDERM Last administered on 08:34; Admin Dose 1 PATCH; Start 05/28/17 at 18:00 Hydralazine HCl (Apresoline) 25 mg Q8 PO Last administered on 05/31/17 13:59; Admin Dose 25 MG; Start 05/29/17 at 22:00 Amlodipine Besylate (Norvasc) 2.5 mg DAILY PO Last administered on 05/31/17 08 :35; Admin Dose 2.5 MG; Start 05/30/17 at 15:30 Metoprolol Tartrate (Lopressor) 12.5 mg BID PO Last administered on 05/31/17 20:43; Admin Dose 12.5 MG; Start 05/30/17 at 21:00 DIGNA RAE MD May 31, 2017 21:20 Exam/Review of Systems Vital Signs Vitals Vital Signs Date Time Temp Pulse Resp B/P Pulse Ox O2 Delivery O2 Flow Rate FiO2 06/01/17 12:00 55 06/01/17 11:53 98.1 20 157/94 98 05/31/17 08:00 Nasal Cannula 2.0 Intake and Output 05/31/17 05/31/17 06/01/17 15:00 23:00 07:00 Intake Total 650 ml 800 ml Output Total 300 ml 550 ml Balance -300 ml 100 ml 800 ml Results Result Diagram: 06/01/17 0650 06/01/17 0650 Results 24 hrs Laboratory Tests Test 06/01/17 06:50 White Blood Count 6.1 Red Blood Count 5.90 Hemoglobin 16.3 Hematocrit 50.2 Mean Corpuscular Volume 85.1 Mean Corpuscular Hemoglobin 27.6 L Mean Corpuscular Hemoglobin Concent 32.5 Red Cell Distribution Width 13.7 Platelet Count 265 Mean Platelet Volume 10.5 H Neutrophils % 29.7 L Lymphocytes % 57.1 H Monocytes % 8.6 Eosinophils % 3.8 Basophils % 0.5 Nucleated Red Blood Cells % 0.0 Neutrophils # 1.8 Lymphocytes # 3.5 H Monocytes # 0.5 Eosinophils # 0.2 Basophils # 0.0 Nucleated Red Blood Cells # 0.0 Sodium Level 142 Potassium Level 4.1 Chloride Level 107 Carbon Dioxide Level 24 Anion Gap 15 Blood Urea Nitrogen 29 H Creatinine 1.45 H Glucose Level 108 Calcium Level 9.5 Phosphorus Level 4.0 Magnesium Level 1.8 Albumin 4.5 Medications Medications Current Medications Aspirin (Aspirin) 81 mg DAILY PO Last administered on 06/01/17 08:39; Admin Dose 81 MG; Start 05/29/17 at 09:00 Losartan Potassium (Cozaar) 100 mg DAILY PO Last administered on 06/01/17 08: 39; Admin Dose 100 MG; Start 05/29/17 at 09:00 Phenytoin (Dilantin) 300 mg HS PO Last administered on 05/31/17 20:43; Admin Dose 300 MG; Start 05/28/17 at 21:00 Olanzapine (Zyprexa) 7.5 mg DAILY PO Last administered on 06/01/17 08:39; Admin Dose 7.5 MG; Start 05/29/17 at 09:00 Hydralazine HCl (Apresoline) 10 mg Q4H PRN IV ELEVATED SYSTOLIC BP Last administered on 05/31/17 04:29; Admin Dose 10 MG; Start 05/28/17 at 17:30 Ondansetron HCl (Zofran Inj) 4 mg Q6H PRN IV NAUSEA AND/OR VOMITING; Start at 17:30 Acetaminophen (Tylenol Tab) 650 mg Q6H PRN PO PAIN LEVEL 1-3 OR FEVER; Start at 17:30 Docusate Sodium (Colace) 100 mg Q12H PRN PO CONSTIPATION; Start 05/28/17 at 17: 30 Famotidine (Pepcid) 20 mg Q12 PO Last administered on 06/01/17 08:41; Admin Dose 20 MG; Start 05/28/17 at 21:00 Heparin Sodium (Porcine) (Heparin (5000 Units/0.5 ml)) 5,000 unit Q8 SC Last administered on 06/01/17 13:40; Admin Dose 5,000 UNIT; Start 05/28/17 at 22:00 Thiamine HCl (Vitamin B1) 100 mg DAILY PO Last administered on 06/01/17 08:39 ; Admin Dose 100 MG; Start 05/29/17 at 09:00 Folic Acid (Folic Acid) 0.4 mg DAILY PO Last administered on 06/01/17 08:39; Admin Dose 0.4 MG; Start 05/29/17 at 09:00 Lorazepam (Ativan) 1 mg Q5M PRN IV CONTROL WITHDRAWAL SYMPTOMS Last administered on 05/28/17 22:03; Admin Dose 1 MG; Start 05/28/17 at 18:00 Salmeterol Xinafoate/ Fluticasone (Advair 250/50 Diskus) 1 inh BID INH Last administered on 06/01/17 08:40; Admin Dose 1 INH; Start 05/28/17 at 21:00 Nicotine (Nicoderm 21 Mg/ 24hr) 1 patch DAILY TRANSDERM Last administered on 09:34; Admin Dose 1 PATCH; Start 05/28/17 at 18:00 Hydralazine HCl (Apresoline) 25 mg Q8 PO Last administered on 06/01/17 13:38; Admin Dose 25 MG; Start 05/29/17 at 22:00 Metoprolol Tartrate (Lopressor) 12.5 mg BID PO Last administered on 06/01/17 08:40; Admin Dose 12.5 MG; Start 05/30/17 at 21:00 Amlodipine Besylate (Norvasc) 5 mg DAILY PO ; Start 06/02/17 at 09:00 DIGNA RAE MD Jun 01, 2017 16:21
[2017-06-01] MEDS: PHENYTOIN 100 MG CAP PO SCH (21:35)
[2017-06-02] VITALS (12 sets, daily range): BP systolic 132–159; BP diastolic 85–95; PULSE 62–76; RESP 17–19
[2017-06-02] MEDS: HEPARIN 5,000 UNIT/0.5 ML VIAL SC SCH ×3 (05:34→21:32)
[2017-06-02 07:15] LABS: BASOPHILS % 0.5 % (0.0-2.0); EOSINOPHILS # 0.2 10^3/ul (0.0-0.5); EOSINOPHILS % 3.6 % (0.0-7.0); HEMATOCRIT 48.5 % (42.0-52.0); HEMOGLOBIN 15.7 g/dl (14.0-18.0); LYMPHOCYTES # 3.3 10^3/ul (0.8-2.9); LYMPHOCYTES % 53.5 % (15.0-51.0); MEAN CORPUSCULAR HEMOGLOBIN 27.4 pg (29.0-33.0); MEAN CORPUSCULAR HGB CONC 32.4 g/dl (32.0-37.0); MEAN CORPUSCULAR VOLUME 84.8 fl (82.0-101.0); MEAN PLATELET VOLUME 10.7 fl (7.4-10.4); MONOCYTE # 0.6 10^3/ul (0.3-0.9); MONOCYTES % 9.6 % (0.0-11.0); NEUTROPHILS % 32.6 % (39.0-77.0); PLATELET COUNT 256 10^3/UL (140-415); RED BLOOD COUNT 5.72 10^6/ul (4.70-6.10); RED CELL DISTRIBUTION WIDTH 13.5 % (11.5-14.5); WHITE BLOOD COUNT 6.2 10^3/ul (4.8-10.8)
[2017-06-02 07:42] LABS: ALBUMIN 4.1 g/dl (3.3-4.9); CALCIUM 9.3 mg/dl (8.4-10.2); CREATININE 1.39 mg/dl (0.61-1.24); MAGNESIUM 1.8 mg/dl (1.7-2.5); PHOSPHORUS 3.3 mg/dl (2.5-4.9); POTASSIUM 4.1 mmol/L (3.5-5.1)
[2017-06-02] MEDS: FOLIC ACID 0.4 MG TAB PO SCH (08:47)
[2017-06-02] MEDS: THIAMINE 100 MG TAB PO SCH (08:47)
[2017-06-02] MEDS: SALMETEROL/FLUTICASONE 250/50 INHA INH SCH ×2 (08:47→21:28)
[2017-06-02] MEDS: OLANZAPINE 5 MG TAB PO SCH (08:49)
[2017-06-02] MEDS: LOSARTAN 50 MG TAB PO SCH (08:50)
[2017-06-02] MEDS: METOPROLOL 25 MG TAB PO SCH ×2 (08:51→21:31)
[2017-06-02] MEDS: AMLODIPINE 5 MG TAB PO SCH (08:52)
[2017-06-02] MEDS: FAMOTIDINE 20 MG TAB PO SCH ×2 (08:53→21:29)
[2017-06-02] MEDS: ASPIRIN 81 MG TAB PO SCH (08:53)
[2017-06-02] MEDS: NICOTINE (21 MG/24 HR) PATCH TRANSDERM SCH (08:55)
[2017-06-02] MEDS ORDERED: FUROSEMIDE 40 MG TAB PO SCH (09:00)
--- NOTE | 2017-06-02 14:55 | PN ---
Date/Time of Note Date/Time of Note DATE: 06/02/17 TIME: 14:53 Assessment/Plan VTE Prophylaxis VTE Prophylaxis Intervention: SCD's Lines/Catheters IV Catheter Type (from [facility]): Saline Lock Urinary Cath still in place: No Assessment/Plan Chief Complaint/Hosp Course 1. Acute on chronic diastolic heart failure - cardiology on board and recommendations appreciated - Will switch to Lasix 20 mg PO daily and monitor renal function. - continue monitoring I/O and daily weights - encouraged patient to abstain from ETOH and smoking 2. Hypertensive urgency emergency - will continue monitoring and adjusting medications as needed - Amlodipine increased to 5mg 3. Acute Renal insufficiency - reduced dose of Lasix - Will continue monitoring and consult nephrology as needed 4. Dyslipidemia 5. Cirrhosis by chart 6. Seizure disorder, on Dilantin 7. Bipolar disorder. stable 8. ETOH abuse. - no signs of withdrawal 9. Disposition - Awaiting clearance from Cardiology and renal function improvement prior to d/c Problems: Subjective 24 Hr Interval Summary Free Text/Dictation feels well, no acute complaints Exam/Review of Systems Vital Signs Vitals Vital Signs Date Time Temp Pulse Resp B/P Pulse Ox O2 Delivery O2 Flow Rate FiO2 06/02/17 12:00 62 06/02/17 11:48 98.1 17 140/87 96 05/31/17 08:00 Nasal Cannula 2.0 Intake and Output 06/01/17 06/01/17 06/02/17 15:00 23:00 07:00 Intake Total 1200 ml 1000 ml Balance 1200 ml 1000 ml Exam General: NAD, awake and alert Neck: no JVD CVS: regular rate, rhythm. no murmurs Lungs: Diminished at bases. no wheezes or crackles Abd: soft, NT, ND, no rebound or guarding Ext: no edema, cyanosis, or clubbing Results Result Diagram: 06/02/17 0635 06/02/17 0635 Results 24 hrs Laboratory Tests Test 06/02/17 06:35 White Blood Count 6.2 Red Blood Count 5.72 Hemoglobin 15.7 Hematocrit 48.5 Mean Corpuscular Volume 84.8 Mean Corpuscular Hemoglobin 27.4 L Mean Corpuscular Hemoglobin Concent 32.4 Red Cell Distribution Width 13.5 Platelet Count 256 Mean Platelet Volume 10.7 H Neutrophils % 32.6 L Lymphocytes % 53.5 H Monocytes % 9.6 Eosinophils % 3.6 Basophils % 0.5 Nucleated Red Blood Cells % 0.0 Neutrophils # 2.0 Lymphocytes # 3.3 H Monocytes # 0.6 Eosinophils # 0.2 Basophils # 0.0 Nucleated Red Blood Cells # 0.0 Sodium Level 140 Potassium Level 4.1 Chloride Level 107 Carbon Dioxide Level 24 Anion Gap 13 Blood Urea Nitrogen 25 H Creatinine 1.39 H Glucose Level 107 Calcium Level 9.3 Phosphorus Level 3.3 Magnesium Level 1.8 Albumin 4.1 Medications Medications Current Medications Aspirin (Aspirin) 81 mg DAILY PO Last administered on 06/02/17 08:53; Admin Dose 81 MG; Start 05/29/17 at 09:00 Losartan Potassium (Cozaar) 100 mg DAILY PO Last administered on 06/02/17 08: 50; Admin Dose 100 MG; Start 05/29/17 at 09:00 Phenytoin (Dilantin) 300 mg HS PO Last administered on 06/01/17 21:35; Admin Dose 300 MG; Start 05/28/17 at 21:00 Olanzapine (Zyprexa) 7.5 mg DAILY PO Last administered on 06/02/17 08:49; Admin Dose 7.5 MG; Start 05/29/17 at 09:00 Ondansetron HCl (Zofran Inj) 4 mg Q6H PRN IV NAUSEA AND/OR VOMITING; Start at 17:30 Acetaminophen (Tylenol Tab) 650 mg Q6H PRN PO PAIN LEVEL 1-3 OR FEVER; Start at 17:30 Docusate Sodium (Colace) 100 mg Q12H PRN PO CONSTIPATION; Start 05/28/17 at 17: 30 Famotidine (Pepcid) 20 mg Q12 PO Last administered on 06/02/17 08:53; Admin Dose 20 MG; Start 05/28/17 at 21:00 Heparin Sodium (Porcine) (Heparin (5000 Units/0.5 ml)) 5,000 unit Q8 SC Last administered on 06/02/17 13:06; Admin Dose 5,000 UNIT; Start 05/28/17 at 22:00 Thiamine HCl (Vitamin B1) 100 mg DAILY PO Last administered on 06/02/17 08:47 ; Admin Dose 100 MG; Start 05/29/17 at 09:00 Folic Acid (Folic Acid) 0.4 mg DAILY PO Last administered on 06/02/17 08:47; Admin Dose 0.4 MG; Start 05/29/17 at 09:00 Lorazepam (Ativan) 1 mg Q5M PRN IV CONTROL WITHDRAWAL SYMPTOMS Last administered on 05/28/17 22:03; Admin Dose 1 MG; Start 05/28/17 at 18:00 Salmeterol Xinafoate/ Fluticasone (Advair 250/50 Diskus) 1 inh BID INH Last administered on 06/02/17 08:47; Admin Dose 1 INH; Start 05/28/17 at 21:00 Nicotine (Nicoderm 21 Mg/ 24hr) 1 patch DAILY TRANSDERM Last administered on 08:55; Admin Dose 1 PATCH; Start 05/28/17 at 18:00 Metoprolol Tartrate (Lopressor) 12.5 mg BID PO Last administered on 06/02/17 08:51; Admin Dose 12.5 MG; Start 05/30/17 at 21:00 Amlodipine Besylate (Norvasc) 5 mg DAILY PO Last administered on 06/02/17 08: 52; Admin Dose 5 MG; Start 06/02/17 at 09:00 Furosemide (Lasix) 40 mg DAILY PO Last administered on 06/02/17 08:53; Admin Dose 40 MG; Start 06/02/17 at 09:00 Hydralazine HCl (Apresoline) 50 mg BID PO Last administered on 06/02/17 08:51 ; Admin Dose 50 MG; Start 06/01/17 at 21:00 LATONIA BUSTAMANTE Jun 02, 2017 14:55
--- NOTE | 2017-06-02 20:18 | CONS ---
Date/Time of Note Date/Time of Note DATE: 06/02/17 TIME: 20:11 Assessment/Plan Assessment/Plan Chief Complaint/Hosp Course IMPRESSION: 1. Congestive heart failure exacerbation, systolic and diastolic by echo/ stress-? Hypertrophic CMY variant by echo(burnt out given mildly depressed to low nl EF) 2. Abnormal electrocardiogram. Assess for acute coronary syndrome with anterolateral T-wave inversions. 3. Hypertensive urgency emergency. 4. Dyslipidemia. 5. Cirrhosis by chart biopsy. 6. Renal insufficiency, acute onset. 7. Seizure disorder. 8. Psych disorder. 9. Possible ETOH abuse. 10. WCT-concerning for NSVT recurrent today-negative trop x 3 11.BRadycardia to high 40's Recc: -Tele -Continue norvasc/hydralazine/losartan -Continue low dose BB as tolerated given likely NSVT and ? Hypertrophic eventhough some mild kaiser with outpatient consideration for ICD as no ischemia by lexiscan -keep k>4.0 and Mg>2.0 as possible given NSVT -Continue lasix and follow volume status/creatnine closely Problems: Consultation Date/Type/Reason Admit Date/Time May 28, 2017 at 16:30 Initial Consult Date 05/29/17 Type of Consultation: Cardiology Reason for Consultation CHF/NSVT Referring Provider: RIVER LU Exam/Review of Systems Vital Signs Vitals Vital Signs Date Time Temp Pulse Resp B/P Pulse Ox O2 Delivery O2 Flow Rate FiO2 06/02/17 19:30 98.5 68 18 139/91 97 05/31/17 08:00 Nasal Cannula 2.0 Intake and Output 06/01/17 06/01/17 06/02/17 15:00 23:00 07:00 Intake Total 1200 ml 1000 ml Balance 1200 ml 1000 ml Exam Review of Systems: CONSTITUTIONAL: No fevers, chills. PULMONARY: No sob CARDIOVASCULAR: No chest pain/palpitations GASTROINTESTINAL: No nausea/vomiting. GENITOURINARY: No hematuria/dysuria. MUSCULOSKELETAL: No myagias/arthalgias. PSYCHIATRIC: The patient denies depression. NEUROLOGIC: No weakness Constitutional: alert, oriented Psych: no complaints Head: normocephalic ENMT: mucosa pink and moist Neck: jvd (9 cm water), supple Respiratory: diminished breath sounds (at bases/B) Cardiovascular: regular rate and rhythm Gastrointestinal: non-tender, soft Musculoskeletal: muscle tone (normal) Extremities: edema (none) Neurological: other (No focal deficits) Results Result Diagram: 06/02/1735 06/02/17 0635 Results 24 hrs Laboratory Tests Test 06/02/17 06:35 White Blood Count 6.2 Red Blood Count 5.72 Hemoglobin 15.7 Hematocrit 48.5 Mean Corpuscular Volume 84.8 Mean Corpuscular Hemoglobin 27.4 L Mean Corpuscular Hemoglobin Concent 32.4 Red Cell Distribution Width 13.5 Platelet Count 256 Mean Platelet Volume 10.7 H Neutrophils % 32.6 L Lymphocytes % 53.5 H Monocytes % 9.6 Eosinophils % 3.6 Basophils % 0.5 Nucleated Red Blood Cells % 0.0 Neutrophils # 2.0 Lymphocytes # 3.3 H Monocytes # 0.6 Eosinophils # 0.2 Basophils # 0.0 Nucleated Red Blood Cells # 0.0 Sodium Level 140 Potassium Level 4.1 Chloride Level 107 Carbon Dioxide Level 24 Anion Gap 13 Blood Urea Nitrogen 25 H Creatinine 1.39 H Glucose Level 107 Calcium Level 9.3 Phosphorus Level 3.3 Magnesium Level 1.8 Albumin 4.1 Medications Medications Current Medications Aspirin (Aspirin) 81 mg DAILY PO Last administered on 06/02/17 08:53; Admin Dose 81 MG; Start 05/29/17 at 09:00 Losartan Potassium (Cozaar) 100 mg DAILY PO Last administered on 06/02/17 08: 50; Admin Dose 100 MG; Start 05/29/17 at 09:00 Phenytoin (Dilantin) 300 mg HS PO Last administered on 06/01/17 21:35; Admin Dose 300 MG; Start 05/28/17 at 21:00 Olanzapine (Zyprexa) 7.5 mg DAILY PO Last administered on 06/02/17 08:49; Admin Dose 7.5 MG; Start 05/29/17 at 09:00 Ondansetron HCl (Zofran Inj) 4 mg Q6H PRN IV NAUSEA AND/OR VOMITING; Start at 17:30 Acetaminophen (Tylenol Tab) 650 mg Q6H PRN PO PAIN LEVEL 1-3 OR FEVER; Start at 17:30 Docusate Sodium (Colace) 100 mg Q12H PRN PO CONSTIPATION; Start 05/28/17 at 17: 30 Famotidine (Pepcid) 20 mg Q12 PO Last administered on 06/02/17 08:53; Admin Dose 20 MG; Start 05/28/17 at 21:00 Heparin Sodium (Porcine) (Heparin (5000 Units/0.5 ml)) 5,000 unit Q8 SC Last administered on 06/02/17 13:06; Admin Dose 5,000 UNIT; Start 05/28/17 at 22:00 Thiamine HCl (Vitamin B1) 100 mg DAILY PO Last administered on 06/02/17 08:47 ; Admin Dose 100 MG; Start 05/29/17 at 09:00 Folic Acid (Folic Acid) 0.4 mg DAILY PO Last administered on 06/02/17 08:47; Admin Dose 0.4 MG; Start 05/29/17 at 09:00 Lorazepam (Ativan) 1 mg Q5M PRN IV CONTROL WITHDRAWAL SYMPTOMS Last administered on 05/28/17 22:03; Admin Dose 1 MG; Start 05/28/17 at 18:00 Salmeterol Xinafoate/ Fluticasone (Advair 250/50 Diskus) 1 inh BID INH Last administered on 06/02/17 08:47; Admin Dose 1 INH; Start 05/28/17 at 21:00 Nicotine (Nicoderm 21 Mg/ 24hr) 1 patch DAILY TRANSDERM Last administered on 08:55; Admin Dose 1 PATCH; Start 05/28/17 at 18:00 Metoprolol Tartrate (Lopressor) 12.5 mg BID PO Last administered on 06/02/17 08:51; Admin Dose 12.5 MG; Start 05/30/17 at 21:00 Amlodipine Besylate (Norvasc) 5 mg DAILY PO Last administered on 06/02/17 08: 52; Admin Dose 5 MG; Start 06/02/17 at 09:00 Hydralazine HCl (Apresoline) 50 mg BID PO Last administered on 06/02/17 08:51 ; Admin Dose 50 MG; Start 06/01/17 at 21:00 Furosemide (Lasix) 20 mg DAILY PO ; Start 06/03/17 at 09:00 ALLYSON WALDROP Jun 02, 2017 20:18
[2017-06-02] MEDS ORDERED: MAGNESIUM SULFATE 2 GM/50 ML 50 ML IVPB ONE (20:30)
[2017-06-02] MEDS: PHENYTOIN 100 MG CAP PO SCH (21:29)
[2017-06-03] VITALS: PULSE 66
[2017-06-03 04:00] VITALS: PULSE 68
[2017-06-03 04:30] VITALS: BP 139/94; RESP 19
[2017-06-03] MEDS: HEPARIN 5,000 UNIT/0.5 ML VIAL SC SCH (06:18)
[2017-06-03 07:37] LABS: BASOPHILS % 0.5 % (0.0-2.0); EOSINOPHILS # 0.2 10^3/ul (0.0-0.5); EOSINOPHILS % 2.7 % (0.0-7.0); HEMATOCRIT 51.1 % (42.0-52.0); HEMOGLOBIN 16.2 g/dl (14.0-18.0); LYMPHOCYTES # 3.6 10^3/ul (0.8-2.9); LYMPHOCYTES % 56.9 % (15.0-51.0); MEAN CORPUSCULAR HEMOGLOBIN 27.1 pg (29.0-33.0); MEAN CORPUSCULAR HGB CONC 31.7 g/dl (32.0-37.0); MEAN CORPUSCULAR VOLUME 85.6 fl (82.0-101.0); MEAN PLATELET VOLUME 10.9 fl (7.4-10.4); MONOCYTE # 0.6 10^3/ul (0.3-0.9); MONOCYTES % 8.9 % (0.0-11.0); NEUTROPHIL # 1.9 10^3/ul (1.6-7.5); NEUTROPHILS % 30.7 % (39.0-77.0); PLATELET COUNT 261 10^3/UL (140-415); RED BLOOD COUNT 5.97 10^6/ul (4.70-6.10); RED CELL DISTRIBUTION WIDTH 13.8 % (11.5-14.5); WHITE BLOOD COUNT 6.3 10^3/ul (4.8-10.8)
[2017-06-03 07:50] VITALS: BP 163/90; RESP 19
[2017-06-03 07:55] LABS: CREATININE 1.32 mg/dl (0.61-1.24); MAGNESIUM 2.2 mg/dl (1.7-2.5); PHOSPHORUS 3.9 mg/dl (2.5-4.9); POTASSIUM 4.8 mmol/L (3.5-5.1)
[2017-06-03 08:21] VITALS: PULSE 69
[2017-06-03] MEDS ORDERED: FUROSEMIDE 20 MG TAB PO SCH (09:00)
[2017-06-03] MEDS: SALMETEROL/FLUTICASONE 250/50 INHA INH SCH (09:04)
[2017-06-03] MEDS: FOLIC ACID 0.4 MG TAB PO SCH (09:05)
[2017-06-03] MEDS: FAMOTIDINE 20 MG TAB PO SCH (09:05)
[2017-06-03] MEDS: LOSARTAN 50 MG TAB PO SCH (09:05)
[2017-06-03] MEDS: AMLODIPINE 5 MG TAB PO SCH (09:06)
[2017-06-03] MEDS: METOPROLOL 25 MG TAB PO SCH (09:06)
[2017-06-03] MEDS: ASPIRIN 81 MG TAB PO SCH (09:07)
[2017-06-03] MEDS: OLANZAPINE 5 MG TAB PO SCH (09:08)
[2017-06-03] MEDS: NICOTINE (21 MG/24 HR) PATCH TRANSDERM SCH (09:09)
[2017-06-03] MEDS: THIAMINE 100 MG TAB PO SCH (09:09)
--- NOTE | 2017-06-03 09:19 | RADRPT ---
PROCEDURE: XR Chest. CLINICAL INDICATION: History of congestive heart failure. TECHNIQUE: Single frontal view. COMPARISON: None. FINDINGS: The lungs are clear. The heart is mildly enlarged. There is no pleural effusion. There is no pneumothorax. IMPRESSION: 1. Mild cardiomegaly. 2. Otherwise normal chest x-ray. RPTAT: QQ .Doroteo Gutierrez MD, MD Date Time Electronically viewed and signed by .Doroteo Gutierrez MD, MD on 06/03/2017 09:18 .R/
--- NOTE | 2017-06-03 10:07 | CONS ---
Date/Time of Note Date/Time of Note DATE: 06/03/17 TIME: 10:05 Assessment/Plan Assessment/Plan Additional Assessment/Plan 1. Congestive heart failure exacerbation, systolic and diastolic by echo/ stress-? 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 Abnormal electrocardiogram. Assess for acute coronary syndrome with anterolateral T-wave inversions. 3. Hypertensive urgency emergency- BP much better now 4. Dyslipidemia. 5. Cirrhosis by chart biopsy. 6. Renal insufficiency, acute onset - con't to avoid nephrotoxic meds 7. Seizure disorder. 8. Psych disorder. 9. Possible ETOH abuse. 10. WCT-concerning for NSVT recurrent today-negative trop x 3 - R/o [place] 11.BRadycardia to high 40's Consultation Date/Type/Reason Admit Date/Time May 28, 2017 at 16:30 Initial Consult Date Type of Consultation: Cardiology Referring Provider: RIVER LU 24 HR Interval Summary Free Text/Dictation NO acute events - no significant ectopy on tele ROS: No fever, no chills, no nausea, no vomiting, no diarrhea/constipation No recent weight changes No chest pain, no PND, no orthopnea + SOB, better No dizziness, blurred vision No thirst, no heat or cold intolerance Exam/Review of Systems Vital Signs Vitals Vital Signs Date Time Temp Pulse Resp B/P Pulse Ox O2 Delivery O2 Flow Rate FiO2 06/03/17 08:21 69 06/03/17 07:50 98.2 19 163/90 95 05/31/17 08:00 Nasal Cannula 2.0 Intake and Output 06/02/17 06/02/17 06/03/17 15:00 23:00 07:00 Intake Total 1050 ml 900 ml Output Total 250 ml Balance 1050 ml 650 ml Exam General: WN/WD/NAD, AOx 2-3 HEENT: Unicetric/atraumatic/EOMI (follow commands) NECK: JVD elevated, no thyromegaly Lymph: no lymphadenopathy HEART: regular with no S3, II/ systolic murmur at apex, PMI L LUNGS: Coarse sounds ABD: soft, NT, ND, +BS : Intact Neuro: non focal SKIN: chronic changes EXT: trace edema Results Result Diagram: 9/26/17 0629 9/26/17 0629 Results 24 hrs Laboratory Tests Test 06/03/17 06:29 White Blood Count 6.3 Red Blood Count 5.97 Hemoglobin 16.2 Hematocrit 51.1 Mean Corpuscular Volume 85.6 Mean Corpuscular Hemoglobin 27.1 L Mean Corpuscular Hemoglobin Concent 31.7 L Red Cell Distribution Width 13.8 Platelet Count 261 Mean Platelet Volume 10.9 H Neutrophils % 30.7 L Lymphocytes % 56.9 H Monocytes % 8.9 Eosinophils % 2.7 Basophils % 0.5 Nucleated Red Blood Cells % 0.0 Neutrophils # 1.9 Lymphocytes # 3.6 H Monocytes # 0.6 Eosinophils # 0.2 Basophils # 0.0 Nucleated Red Blood Cells # 0.0 Sodium Level 139 Potassium Level 4.8 Chloride Level 107 Carbon Dioxide Level 21 Anion Gap 16 Blood Urea Nitrogen 27 H Creatinine 1.32 H Glucose Level 103 Calcium Level 10.0 Phosphorus Level 3.9 Magnesium Level 2.2 Medications Medications Current Medications Aspirin (Aspirin) 81 mg DAILY PO Last administered on 06/03/17 09:07; Admin Dose 81 MG; Start 05/29/17 at 09:00 Losartan Potassium (Cozaar) 100 mg DAILY PO Last administered on 06/03/17 09: 05; Admin Dose 100 MG; Start 05/29/17 at 09:00 Phenytoin (Dilantin) 300 mg HS PO Last administered on 06/02/17 21:29; Admin Dose 300 MG; Start 05/28/17 at 21:00 Olanzapine (Zyprexa) 7.5 mg DAILY PO Last administered on 06/03/17 09:08; Admin Dose 7.5 MG; Start 05/29/17 at 09:00 Ondansetron HCl (Zofran Inj) 4 mg Q6H PRN IV NAUSEA AND/OR VOMITING; Start at 17:30 Acetaminophen (Tylenol Tab) 650 mg Q6H PRN PO PAIN LEVEL 1-3 OR FEVER; Start at 17:30 Docusate Sodium (Colace) 100 mg Q12H PRN PO CONSTIPATION; Start 05/28/17 at 17: 30 Famotidine (Pepcid) 20 mg Q12 PO Last administered on 06/03/17 09:05; Admin Dose 20 MG; Start 05/28/17 at 21:00 Heparin Sodium (Porcine) (Heparin (5000 Units/0.5 ml)) 5,000 unit Q8 SC Last administered on 06/03/17 06:18; Admin Dose 5,000 UNIT; Start 05/28/17 at 22:00 Thiamine HCl (Vitamin B1) 100 mg DAILY PO Last administered on 06/03/17 09:09 ; Admin Dose 100 MG; Start 05/29/17 at 09:00 Folic Acid (Folic Acid) 0.4 mg DAILY PO Last administered on 06/03/17 09:05; Admin Dose 0.4 MG; Start 05/29/17 at 09:00 Lorazepam (Ativan) 1 mg Q5M PRN IV CONTROL WITHDRAWAL SYMPTOMS Last administered on 05/28/17 22:03; Admin Dose 1 MG; Start 05/28/17 at 18:00 Salmeterol Xinafoate/ Fluticasone (Advair 250/50 Diskus) 1 inh BID INH Last administered on 06/03/17 09:04; Admin Dose 1 INH; Start 05/28/17 at 21:00 Nicotine (Nicoderm 21 Mg/ 24hr) 1 patch DAILY TRANSDERM Last administered on 09:09; Admin Dose 1 PATCH; Start 05/28/17 at 18:00 Metoprolol Tartrate (Lopressor) 12.5 mg BID PO Last administered on 06/03/17 09:06; Admin Dose 12.5 MG; Start 05/30/17 at 21:00 Amlodipine Besylate (Norvasc) 5 mg DAILY PO Last administered on 06/03/17 09: 06; Admin Dose 5 MG; Start 06/02/17 at 09:00 Hydralazine HCl (Apresoline) 50 mg BID PO Last administered on 06/03/17 09:07 ; Admin Dose 50 MG; Start 06/01/17 at 21:00 Furosemide (Lasix) 20 mg DAILY PO Last administered on 06/03/17 09:08; Admin Dose 20 MG; Start 06/03/17 at 09:00 JENN CARO MD Jun 03, 2017 10:07
[2017-06-03] MEDS ORDERED: AMLODIPINE 5 MG TAB PO ONE (10:30)
--- NOTE | 2017-06-03 11:36 | PDOCDIS ---
Discharge Instructions CONDITION Patient Condition: Fair HOME CARE INSTRUCTIONS: Special Diet: low cholesterol low fat ACTIVITY: Activity Restrictions: Slowly Increase Activity FOLLOW UP/APPOINTMENTS Follow-up Plan 1. Please take all new medications as directed and follow up with your clinic as soon as possible 2. Follow up with a referral for a tool maker apprentice for possible chronic kidney issues once you see your primary care provider. 3. Take all other home medications as needed. LATONIA BUSTAMANTE Jun 03, 2017 11:36
[2017-06-03] MEDS ORDERED: LAS20 PO (11:40)
[2017-06-03] MEDS ORDERED: METO-448 PO (11:40)
[2017-06-03] MEDS ORDERED: HYDR-3672 PO (11:40)
[2017-06-03] MEDS ORDERED: AMLO-147 PO (11:40)
[2017-06-03] MEDS ORDERED: PHEN300C2 PO (11:40)
[2017-06-03] MEDS ORDERED: ADV25050 INH (11:40)
[2017-06-03] MEDS ORDERED: OLAN5TAB5 PO (11:40)
[2017-06-03] MEDS ORDERED: LOSA50TA2 PO (11:40)
[2017-06-03] MEDS ORDERED: ASPI81TA3 PO (11:40)
[2017-06-03 11:58] VITALS: BP 146/96; RESP 20
--- NOTE | 2017-06-03 16:16 | DS ---
Date/Time of Note Date/Time of Note DATE: 06/03/17 TIME: 16:16 Discharge Summary Admission/Discharge Info Admit Date/Time May 28, 2017 at 16:30 Discharge Date/Time Jun 03, 2017 at 13:21 Patient Condition: Fair Hx of Present Illness 57 yo M with PMH IA (records at [facility]), CVA with residual left sided weakness, HTN, seizures, liver cirrhosis, and hepatitis C presented to ED after being sent from his PCP clinic for uncontrolled HTN. was at bedside and history obtained from as well as patient. Per patient, he has been experiencing intermittent shortness of breath for the past 2-3 weeks with associated wheezing. He admits to a chronic cough but denies any sputum production. He has used an albuterol inhaler and neb treatments for relief as well. Patient admits to drinking 1 beer every morning with his medications but did not have a beer today and is experiencing slight shakes. Last seizure was 1 -2 years ago per his recollection. Patient denies being diagnosed with any heart conditions and only recently diagnosed with HTN. Per , patient has significantly cut down on his alcohol intake and working on his health. Patient was recently treated for a UTI at the end of April with Cipro and denies any further episodes of dysuria. Hospital Course 57 yo M with PMH IA (records at [facility]), CVA with residual left sided weakness, HTN, seizures, liver cirrhosis, and hepatitis C presented to ED after being sent from his PCP clinic for uncontrolled HTN. Patient was evaluated by cardiology and also received echocardiogram and stress test which did not show any significant ischemic disease, however patient did show signs of diastolic dysfunction and was put on appropriate medications per cardiology. Patient did have a hard time with his blood pressure during the stay and his medications were adjusted in order to control his blood pressure. It was thoroughly explained to the patient to stop his previous medication and prescriptions were given to the patient that were to replace all medications. Patient was given explicit instructions to follow with his primary care provider as soon as possible as he needs a trim mechanic given his acute kidney injury upon admission that is resolving. Patient understands. Discharge diagnoses Hypertension, urgency Acute on chronic diastolic heart failure Acute kidney injury Dyslipidemia Epilepsy Bipolar Home Meds Active Scripts Salmeterol Xinaf/Fluticasone* (Advair*) 250-50 Diskus Inhaler, 1 INH INH BID for 30 Days, #1 BLIST PACK 2 Refills Prov:LATONIA BUSTAMANTE 06/03/17 Furosemide (Lasix) 20 Mg Tab, 20 MG PO DAILY for 30 Days, #30 TAB 2 Refills Prov:LATONIA BUSTAMANTE 06/03/17 Olanzapine* (Zyprexa*) 5 Mg Tablet, 7.5 MG PO DAILY for 30 Days, #30 TAB 2 Refills Prov:LATONIA BUSTAMANTE 06/03/17 Metoprolol Tartrate* (Lopressor*) 25 Mg Tab, 12.5 MG PO BID for 30 Days, #60 TAB 2 Refills Prov:LATONIA BUSTAMANTE 06/03/17 Hydralazine Hcl* (Apresoline*) 50 Mg Tab, 50 MG PO BID for 30 Days, #60 TAB 2 Refills Prov:LATONIA BUSTAMANTE 06/03/17 Amlodipine Besylate* (Amlodipine Besylate*) 10 Mg Tablet, 10 MG PO DAILY for 30 Days, #30 TAB 2 Refills Prov:LATONIA BUSTAMANTE 06/03/17 Losartan Potassium* (Cozaar*) 50 Mg Tablet, 100 MG PO DAILY for 30 Days, #30 TAB 2 Refills Prov:LATONIA BUSTAMANTE 06/03/17 Aspirin* (Aspirin* Chew) 81 Mg Tab.chew, 81 MG PO DAILY for 30 Days, #30 TAB.CHEW 2 Refills Prov:LATONIA BUSTAMANTE 06/03/17 Phenytoin* Sodium Extended (Dilantin*) 300 Mg Capsule, 300 MG PO HS for 30 Days , #30 CAP 2 Refills Prov:LATONIA BUSTAMANTE 06/03/17 Discontinued Reported Medications Losartan Potassium* (Losartan Potassium*) 50 Mg Tablet, 50 MG PO DAILY, TAB 05/28/17 Atenolol* (Atenolol*) 100 Mg Tablet, 100 MG PO DAILY, #30 TAB 05/28/17 Nitroglycerin (Nitroquick) 0.4 Mg Tab.subl 01/30/11 Lisinopril* (Lisinopril*) 20 Mg Tablet 01/30/11 Atenolol* (Atenolol*) 50 Mg Tablet 01/30/11 Olanzapine (Zyprexa) 10 Mg Tablet 01/30/11 Sertraline Hcl* (Zoloft*) 100 Mg Tablet 01/30/11 Phenytoin* Sodium Extended (Dilantin*) 100 Mg Capsule 01/30/11 Lisinopril* (Zestril*) 20 Mg Tablet 01/30/11 Amlodipine Besylate/Benazepril (Lotrel 2.5-10 Mg Capsule) 1 Udcap Capsule 01/30/11 Hydrochlorothiazide (Hydrochlorothiazide) 25 Mg Tablet 01/30/11 Tamsulosin Hcl* (Flomax*) 0.4 Mg Cap.sr.24h 01/30/11 Follow-up Plan 1. Please take all new medications as directed and follow up with your clinic as soon as possible 2. Follow up with a referral for a trim mechanic for possible chronic kidney issues once you see your primary care provider. 3. Take all other home medications as needed. Primary Care Provider Not On Staff Doctor Time spent on discharge: > 30 minutes Pending Labs Laboratory Tests Test 06/03/17 06:29 White Blood Count 6.310^3/ul (4.8-10.8) Red Blood Count 5.9710^6/ul (4.70-6.10) Hemoglobin 16.2g/dl (14.0-18.0) Hematocrit 51.1% (42.0-52.0) Mean Corpuscular Volume 85.6fl (82.0-101.0) Mean Corpuscular Hemoglobin 27.1pg (29.0-33.0) Mean Corpuscular Hemoglobin Concent 31.7g/dl (32.0-37.0) Red Cell Distribution Width 13.8% (11.5-14.5) Platelet Count 31354^3/UL (140-415) Mean Platelet Volume 10.9fl (7.4-10.4) Neutrophils % 30.7% (39.0-77.0) Lymphocytes % 56.9% (15.0-51.0) Monocytes % 8.9% (0.0-11.0) Eosinophils % 2.7% (0.0-7.0) Basophils % 0.5% (0.0-2.0) Nucleated Red Blood Cells % 0.0/100WBC (0.0-0.0) Neutrophils # 1.910^3/ul (1.6-7.5) Lymphocytes # 3.610^3/ul (0.8-2.9) Monocytes # 0.610^3/ul (0.3-0.9) Eosinophils # 0.210^3/ul (0.0-0.5) Basophils # 0.010^3/ul (0.0-0.1) Nucleated Red Blood Cells # 0.010^3/ul (0.0-0.0) Sodium Level 139mmol/L (135-144) Potassium Level 4.8mmol/L (3.5-5.1) Chloride Level 107mmol/L (97-110) Carbon Dioxide Level 21mmol/L (21-31) Anion Gap 16 (8-16) Blood Urea Nitrogen 27mg/dl (7-20) Creatinine 1.32mg/dl (0.61-1.24) Glucose Level 103mg/dl (70-220) Calcium Level 10.0mg/dl (8.4-10.2) Phosphorus Level 3.9mg/dl (2.5-4.9) Magnesium Level 2.2mg/dl (1.7-2.5) LATONIA BUSTAMANTE Jun 03, 2017 16:16
[2017-06-04] MEDS ORDERED: AMLODIPINE 10 MG TAB PO SCH (09:00)
== END 2017-06-03 13:21 | disposition home or self-care (01) | DRG 304 ==
LOC: E/R 14:17 → MS4 16:30
PROVIDERS: ADMIT Internal Medicine; ATTEND Internal Medicine
DX: I16.1 Hypertensive emergency (principal); I50.43 Acute on chronic combined systolic (congestive) and diastolic (congestive) heart failure; N17.9 Acute kidney failure, unspecified; K70.30 Alcoholic cirrhosis of liver without ascites; J44.1 Chronic obstructive pulmonary disease with (acute) exacerbation; I11.0 Hypertensive heart disease with heart failure; F31.9 Bipolar disorder, unspecified; G40.909 Epilepsy, unspecified, not intractable, without status epilepticus; E78.5 Hyperlipidemia, unspecified; F10.10 Alcohol abuse, uncomplicated; B19.20 Unspecified viral hepatitis C without hepatic coma
CPT/HCPCS: 71010; 78452; 80048; 80053; 80061; 80069; 80185; 82550; 82553; 83036; 83735; 83880; 84100; 84484; 85025; 85610; 85730; 93005; 93017; 93306; 96374; 96375; J1940; A9500; A9505; J0360; J1644; J2060; J2785; J3475